=== PATIENT | male | born 1980 | race American Indian/Alaskan Native ===

== ENCOUNTER 2018-01-14 10:56 | Emergency (ER) | payer MEDICAID ==
[2018-01-14] MEDS ORDERED: KEPPRA 1,000 MG/NS 0.75% 100ML 1,000 MG/100 ML BAG IV ONE (11:26)
[2018-01-14 11:30] VITALS: BP 135/75
[2018-01-14 11:59] LABS: Basophils % (Auto) 0.3 % (0.0-1.8); Eosinophils % (Auto) 0.2 % (0.0-4.3); Hematocrit 41.9 % (35.5-45.6); Hemoglobin 14.3 gm/dl (11.8-15.2); Lymphocytes # (Auto) 1.3 K/mm3 (1.2-5.4); Lymphocytes % (Auto) 17.7 % (13.4-35.0); Mean Corpuscular HGB Conc 34 % (32-34); Mean Corpuscular Hemoglobin 31 pg (28-32); Mean Corpuscular Volume 91 fl (84-94); Monocytes # (Auto) 0.5 K/mm3 (0.0-0.8); Monocytes % (Auto) 6.1 % (0.0-7.3); Platelet Count 261 K/mm3 (140-440); Red Cell Distribution Width 12.9 % (13.2-15.2)
--- NOTE | 2018-01-14 12:15 | Cat Scan Report ---
CT HEAD WITHOUT CONTRAST: HISTORY: Trauma after a seizure. TECHNIQUE: Sequential 2.5mm CT images. COMPARISON: none. FINDINGS: Cerebral Parenchyma: Within normal limits. Cerebellum: Within normal limits. Brainstem: Within normal limits. Ventricles: Normal. Sella: Normal. Extra-axial spaces: Normal. Basal Cisterns: Normal. Intracranial Hemorrhage: None. Midline Shift: None. Calvarium: Normal. Mild right frontal soft tissue swelling is noted. Sinuses: Normal. Mastoid Air Cells: Normal. Visualized Orbits: Normal. IMPRESSION: Cranial CT scan within normal limits.
--- NOTE | 2018-01-14 12:17 | Cat Scan Report ---
CT SCAN OF THE CERVICAL SPINE: HISTORY: Neck pain after seizure. TECHNIQUE: Contiguous 1.25 mm axial images of the cervical spine were obtained. Sagittal and coronal reformatted images. FINDINGS: There is normal alignment of the cervical spine. The body, pedicles and posterior ligaments are intact. No evidence of fracture or subluxation is seen. Mild degenerative disc disease is noted at C3-4. The spinal canal appears normal. The prevertebral soft tissues appear normal. IMPRESSION: Mild cervical spondylosis. No acute process is noted.
[2018-01-14 12:39] LABS: BUN/Creatinine Ratio 12; Blood Urea Nitrogen 14 mg/dL (9-20); Calcium 9.4 mg/dL (8.4-10.2); Hemolysis Index 5
--- NOTE | 2018-01-14 14:07 | Emergency Department Report ---
ED Seizure HPI - General Chief Complaint: Seizure Stated Complaint: SEIZURE Time Seen by Provider: 01/14/18 11:17 Source: patient, EMS Mode of arrival: Stretcher Limitations: No Limitations - History of Present Illness Initial Comments: Patient had a generalized seizure at home. He is transported to this facility for further evaluation. He hit his head. He does not complain of a headache at this point but states that his neck is somewhat stiff. He has been off his Keppra for at least 2 weeks. He has no specific complaint otherwise. MD Complaint: seizure Description of Episode: tonic-clonic movement -: minutes(s) Witnessed:: Yes Seizure History: known seizure disorder Place: home Associated Symptoms: denies other symptoms - Related Data Previous Rx's Medication Instructions Recorded Last Taken Type levETIRAcetam [Keppra] 500 mg PO BID #60 tablet 01/14/18 Unknown Rx Allergies Allergy/AdvReac Type Severity Reaction Status Date / Time No Known Allergies Allergy Verified 01/14/18 11:17 ED Review of Systems ROS: Stated complaint: SEIZURE Other details as noted in HPI Constitutional: denies: chills, fever Eyes: denies: eye pain, eye discharge, vision change ENT: denies: ear pain, throat pain Respiratory: denies: cough, shortness of breath, wheezing Cardiovascular: denies: chest pain, palpitations Endocrine: no symptoms reported Gastrointestinal: denies: abdominal pain, nausea, diarrhea Genitourinary: denies: urgency, dysuria Musculoskeletal: other (some neck stiffness). denies: back pain, joint swelling , arthralgia Skin: denies: rash, lesions Neurological: denies: headache, weakness, paresthesias Psychiatric: denies: anxiety, depression Hematological/Lymphatic: denies: easy bleeding, easy bruising ED Past Medical Hx - Past Medical History Hx Seizures: Yes - Surgical History Past Surgical History?: No - Social History Smoking Status: Never Smoker Substance Use Type: None - Medications Home Medications: Home Medications Medication Instructions Recorded Confirmed Last Taken Type levETIRAcetam [Keppra] 500 mg PO BID #60 tablet 01/14/18 Unknown Rx ED Physical Exam - General Limitations: No Limitations General appearance: alert, in no apparent distress - Head Head exam: Present: normocephalic, other (abrasion forehead no cephalohematoma) - Eye Eye exam: Present: normal appearance, PERRL, EOMI. Absent: scleral icterus - ENT ENT exam: Present: mucous membranes moist - Neck Neck exam: Present: normal inspection. Absent: tenderness, meningismus - Respiratory Respiratory exam: Present: normal lung sounds bilaterally. Absent: respiratory distress - Cardiovascular Cardiovascular Exam: Present: regular rate, normal rhythm. Absent: systolic murmur, diastolic murmur, rubs, gallop - GI/Abdominal GI/Abdominal exam: Present: soft, normal bowel sounds. Absent: distended, tenderness, guarding, rebound, rigid - Rectal Rectal exam: Present: deferred - Extremities Exam Extremities exam: Present: normal inspection - Back Exam Back exam: Present: normal inspection - Neurological Exam Neurological exam: Present: alert, oriented X3, CN II-XII intact. Absent: motor sensory deficit - Psychiatric Psychiatric exam: Present: normal affect, normal mood - Skin Skin exam: Present: warm, dry, intact, normal color. Absent: rash ED Course Vital Signs 01/14/18 01/14/18 11:19 11:30 Temperature 98.6 F Pulse Rate 60 Respiratory 18 18 Rate Blood Pressure 135/75 O2 Sat by Pulse 99 99 Oximetry - Reevaluation(s) Reevaluation #1: Patient awake and alert. Talking on his cell phone. No distress. Appropriate for outpatient management. He has been informed not to drive or utilize motorized equipment until cleared by a neurologist preferably or primary care physician. 01/14/18 14:11 ED Medical Decision Making - Lab Data Result diagrams: 01/14/18 11:38 01/14/18 11:38 Laboratory Results - last 24 hr 01/14/18 01/14/18 11:38 11:38 WBC 7.5 RBC 4.60 Hgb 14.3 Hct 41.9 MCV 91 MCH 31 MCHC 34 RDW 12.9 L Plt Count 261 Lymph % (Auto) 17.7 [place] % (Auto) 6.1 Eos % (Auto) 0.2 Baso % (Auto) 0.3 Lymph # 1.3 [place] # 0.5 Eos # 0.0 Baso # 0.0 Seg Neutrophils % 75.7 H Seg Neutrophils # 5.7 Sodium 138 Potassium 4.7 Chloride 99.0 Carbon Dioxide 26 Anion Gap 18 BUN 14 Creatinine 1.2 Estimated GFR > 60 BUN/Creatinine Ratio 12 Glucose 88 Calcium 9.4 Magnesium 2.30 - Radiology Data Radiology results: report reviewed (CT of the head and cervical spine no acute process) Critical care attestation.: If time is entered above; I have spent that time in minutes in the direct care of this critically ill patient, excluding procedure time. ED Disposition Clinical Impression: Seizure, History of seizure disorder Disposition: TO HOME OR SELFCARE Is pt being admited?: No Does the pt Need Aspirin: No Condition: Stable Instructions: Recurrent Seizures Adult (ED) Additional Instructions: Drive or operate machinery until you have been cleared by her neurologist or primary care physician. Prescriptions: levETIRAcetam [Keppra] 500 mg PO BID #60 tablet Referrals: [facility] [Provider Group] - 3-5 Days MYRON CHEN MD [Staff Physician] - 3-5 Days Time of Disposition: 14:19
== END 2018-01-14 15:01 | disposition home or self-care (01) ==
LOC: ED 10:56
DX: G40.909 Epilepsy, unspecified, not intractable, without status epilepticus (principal)
CPT/HCPCS: 36415; 70450; 72125; 80048; 83735; 85025; 93005; 93010; 96365; 99284; J1953

== ENCOUNTER 2018-02-03 14:46 | Observation (INO) | payer MEDICAID ==
[2018-02-03 15:46] LABS: Hematocrit 42.2 % (35.5-45.6); Hemoglobin 13.6 gm/dl (11.8-15.2); Mean Corpuscular HGB Conc 32 % (32-34); Mean Corpuscular Hemoglobin 31 pg (28-32); Mean Corpuscular Volume 95 fl (84-94); Platelet Count 304 K/mm3 (140-440); Red Blood Count 4.45 M/mm3 (3.65-5.03); Red Cell Distribution Width 13.4 % (13.2-15.2)
[2018-02-03 15:49] LABS: BUN/Creatinine Ratio 8; Blood Urea Nitrogen 11 mg/dL (9-20); Calcium 8.9 mg/dL (8.4-10.2); Hemolysis Index 3
[2018-02-03 17:00] LABS: Bilirubin,Urine NEG (Negative); Blood,Urine MOD (Negative); Color,Urine Yellow (Yellow); Mucus,Urine FEW /HPF; Protein,Urine <15 mg/dL mg/dL (Negative); Urobilinogen,Urine < 2.0 mg/dL (<2.0); WBC,Urine < 1.0 /HPF (0.0-6.0)
[2018-02-03 17:04] LABS: Amphetamine Screen,Urine PRESUMPTIVE NEGATIVE; Benzodiazepines Screen,Urine PRESUMPTIVE NEGATIVE; Cocaine Screen,Urine PRESUMPTIVE NEGATIVE; Methadone Screen,Urine PRESUMPTIVE NEGATIVE; Opiate Screen,Urine PRESUMPTIVE NEGATIVE
[2018-02-03] MEDS ORDERED: ATIVAN ONE (17:15)
[2018-02-03] MEDS ORDERED: NACL 0.9% 1000 ML 1,000 ML ONE (17:20)
[2018-02-03] MEDS ORDERED: KEPPRA 1,000 MG/NS 0.75% 100ML 1,000 MG/100 ML BAG IV ONE ×2 (17:20→17:27)
[2018-02-03 17:21] LABS: Cannabinoid Screen,Urine PRESUMPTIVE POSITIVE
[2018-02-03] MEDS ORDERED: ATIVAN IV ONE (17:27)
[2018-02-03] MEDS ORDERED: NACL 0.9% 1000 ML 1,000 ML IV ONE (17:27)
--- NOTE | 2018-02-03 17:41 | Emergency Department Report ---
ED Seizure HPI - General Chief Complaint: Seizure Stated Complaint: SEIZURES Time Seen by Provider: 02/03/18 17:24 Source: patient Mode of arrival: Ambulatory Limitations: No Limitations - History of Present Illness Initial Comments: Patient had seizure twice today at home according to his who is present at his bedside. While he is in the ED he had an active seizure which was witnessed by the ED staff including me. Patient became postictal after the seizure. He was given 2 mg of Ativan IV which aborted the seizure in the ED. Complaint: seizure -: Sudden, This morning, This afternoon Description of Episode: loss of consciousness, tonic-clonic movement -: minutes(s) (3) Witnessed:: Yes Trauma: No Seizure History: known seizure disorder Place: home, other (ED) Possible Precipitating Event: medication (Patient is not taking his Keppra yesterday and today.) Associated Symptoms: other (unable to obtain patient is postictal.) Treatments Prior to Arrival: none - Related Data Home Medications Medication Instructions Recorded Confirmed Last Taken levETIRAcetam [Keppra] 1,500 mg PO DAILY 02/03/18 02/03/18 2 Days Ago ~02/01/18 1500mg Allergies Allergy/AdvReac Type Severity Reaction Status Date / Time No Known Allergies Allergy Verified 01/14/18 11:17 ED Review of Systems ROS: Stated complaint: SEIZURES Other details as noted in HPI Comment: Unobtainable due to pts medical conditions (Patient is post ictal.) ED Past Medical Hx - Past Medical History Previous Medical History?: Yes Hx Seizures: Yes - Surgical History Past Surgical History?: No - Social History Smoking Status: Never Smoker Substance Use Type: Alcohol, Marijuana, Prescribed - Medications Home Medications: Home Medications Medication Instructions Recorded Confirmed Last Taken Type levETIRAcetam [Keppra] 1,500 mg PO DAILY 02/03/18 02/03/18 2 Days Ago History ~02/01/18 1500mg ED Physical Exam - General Limitations: Altered Mental Status (Patient is post ictal.) General appearance: postictal - Head Head exam: Present: atraumatic, normal inspection - Eye Eye exam: Present: PERRL - ENT ENT exam: Present: mucous membranes moist, other (patient foaming from the mouth after seizure.) - Neck Neck exam: Present: normal inspection - Respiratory Respiratory exam: Present: normal lung sounds bilaterally - Cardiovascular Cardiovascular Exam: Present: tachycardia, normal heart sounds - GI/Abdominal GI/Abdominal exam: Present: soft, normal bowel sounds. Absent: distended, tenderness, guarding, rebound - Extremities Exam Extremities exam: Present: normal inspection, normal capillary refill - Neurological Exam Neurological exam: Present: other (Unable to evaluate because patient is postictal.) - Skin Skin exam: Present: warm, dry, intact, normal color ED Course Vital Signs 02/03/18 02/03/18 02/03/18 15:07 16:42 16:45 Temperature 98.4 F Pulse Rate 102 H Respiratory 18 Rate Blood Pressure 136/79 144/63 O2 Sat by Pulse 93 97 99 Oximetry 02/03/18 02/03/18 02/03/18 17:00 17:15 17:31 Temperature Pulse Rate 79 119 H 122 H Respiratory 17 24 29 H Rate Blood Pressure 126/66 152/59 132/31 O2 Sat by Pulse 98 100 Oximetry 02/03/18 02/03/18 02/03/18 17:39 17:40 18:00 Temperature 99.8 F H Pulse Rate 113 H 95 H Respiratory 24 26 H Rate Blood Pressure 132/31 116/54 O2 Sat by Pulse 100 100 Oximetry 02/03/18 18:21 Temperature Pulse Rate 89 Respiratory 26 H Rate Blood Pressure 128/56 O2 Sat by Pulse 100 Oximetry - Reevaluation(s) Reevaluation #1: 02/03/18 19:34 I discussed the case with Dr. Fuentes the hospitalist on-call. He will admit patient to the hospital for further management. ED Medical Decision Making - Lab Data Result diagrams: 02/03/18 18:30 02/03/18 18:22 - Medical Decision Making Seizure disorder. Noncompliant with seizure medication. Hypocalcemia. Critical care attestation.: If time is entered above; I have spent that time in minutes in the direct care of this critically ill patient, excluding procedure time. ED Disposition Clinical Impression: Seizure disorder, Hypocalcemia Disposition: OP ADMIT IP TO THIS HOSP Is pt being admited?: Yes Does the pt Need Aspirin: No Condition: Stable Referrals: PRIMARY CARE, [Primary Care Provider] - 3-5 Days
[2018-02-03 18:00] LABS: INR 0.98 (0.87-1.13); Partial Thromboplastin Time 23.7 Sec. (24.2-36.6)
--- NOTE | 2018-02-03 18:16 | Cat Scan Report ---
FINAL REPORT EXAM: CT HEAD/BRAIN WO CON HISTORY: seizure TECHNIQUE: CT of the head was performed. No intravenous contrast was administered. PRIORS: 01/14/2018 FINDINGS: There is no evidence of intracranial hemorrhage. There is no edema, mass effect or midline shift. There are no abnormal extra-axial fluid collections. The ventricles are appropriate for brain volume. There is no skull fracture seen. The visualized aspects of the sinuses are clear. IMPRESSION: There is no acute intracranial abnormality identified.
--- NOTE | 2018-02-03 18:40 | XRay Report ---
FINAL REPORT PROCEDURE: XR CHEST 1V AP TECHNIQUE: Chest radiograph anteroposterior view. CPT 00692 HISTORY: seizure COMPARISON: No prior studies are available for comparison. FINDINGS: Heart: Normal. Mediastinum/Vessels: Normal. Lungs/Pleural space: A triangular density is noted in the right upper lung consistent with collapse of right upper lobe. There is moderate elevation of right hemidiaphragm. Left lung and bilateral pleural spaces are clear. Bony thorax: No acute osseous abnormality. Life support devices: None. IMPRESSION: Collapse right upper lobe. If there is any history of prior right lung surgery this may represent a right upper lobe resection. Clinical correlation is recommended. Comparison with any prior studies would be of help..
[2018-02-03 18:43] LABS: Basophils % (Auto) 0.2 % (0.0-1.8); Eosinophils % (Auto) 0.1 % (0.0-4.3); Hematocrit 38.5 % (35.5-45.6); Hemoglobin 12.5 gm/dl (11.8-15.2); Lymphocytes # (Auto) 0.5 K/mm3 (1.2-5.4); Mean Corpuscular HGB Conc 33 % (32-34); Mean Corpuscular Hemoglobin 31 pg (28-32); Mean Corpuscular Volume 94 fl (84-94); Monocytes # (Auto) 0.4 K/mm3 (0.0-0.8); Monocytes % (Auto) 5.1 % (0.0-7.3); Platelet Count 252 K/mm3 (140-440); Red Cell Distribution Width 13.3 % (13.2-15.2)
[2018-02-03 18:57] LABS: Alanine Aminotransferase 14 units/L (7-56); Albumin 3.7 g/dL (3.9-5); BUN/Creatinine Ratio 8; Blood Urea Nitrogen 10 mg/dL (9-20); Calcium 7.9 mg/dL (8.4-10.2); Hemolysis Index 8
[2018-02-03 19:02] LABS: Alanine Aminotransferase 15 units/L (7-56); Albumin 3.8 g/dL (3.9-5)
[2018-02-03 19:06] LABS: Bilirubin,Direct < 0.2 mg/dL (0-0.2)
[2018-02-03] MEDS ORDERED: CALCIUM GLUCONATE 1,000 MG in NACL 0.9% 100 ML IV ONE (19:22)
[2018-02-03] MEDS ORDERED: D50W (25GM) Syringe IV ONE (19:23)
--- NOTE | 2018-02-03 21:17 | History and Physical Report ---
History of Present Illness Date of examination: 02/03/18 Date of admission: 02/03/18 19:37 Chief complaint: Seizures x 3 times today including one in ER History of present illness: History of Present Illness: Patient had seizures twice today at home according to his who is present at his bedside. While he is in the ED he had an active seizure which was witnessed by the ED staff including me. Patient became postictal after the seizure. He was given 2 mg of Ativan IV which aborted the seizure in the ED. Complaint: seizure -: Sudden, This morning, This afternoon Description of Episode: loss of consciousness, tonic-clonic movement -: minutes(s) (3) Witnessed:: Yes Trauma: No Seizure History: known seizure disorder Place: home, other (ED) Possible Precipitating Event: medication (Patient is not taking his Keppra yesterday and today.) Associated Symptoms: other (unable to obtain patient is postictal.) Treatments Prior to Arrival: none Past Medical History Previous Medical History?: Yes Hx Seizures: Yes - Surgical History Past Surgical History?: No - Social History Smoking Status: Never Smoker Substance Use Type: Alcohol, Marijuana, Prescribed Family History Htn - Medications Home Medications: Home Medications Medication Instructions Recorded Confirmed Last Taken Type levETIRAcetam [Keppra] 1,500 mg PO DAILY 02/03/18 02/03/18 2 Days Ago History ~02/01/18 1500mg Medications and Allergies Allergies Allergy/AdvReac Type Severity Reaction Status Date / Time No Known Allergies Allergy Verified 01/14/18 11:17 Home Medications Medication Instructions Recorded Confirmed Last Taken Type levETIRAcetam [Keppra] 1,500 mg PO DAILY 02/03/18 02/03/18 2 Days Ago History ~02/01/18 1500mg Review of Systems All systems: negative Exam - Constitutional Vitals: Temp Pulse Resp BP Pulse Ox 99.8 F H 89 26 H 128/56 100 02/03/18 17:39 02/03/18 18:21 02/03/18 18:21 02/03/18 18:21 02/03/18 18:21 General appearance: Present: no acute distress, well-nourished - EENT Eyes: Present: PERRL ENT: hearing intact, clear oral mucosa - Neck Neck: Present: supple, normal ROM - Respiratory Respiratory effort: normal Respiratory: bilateral: CTA - Cardiovascular Heart Sounds: Present: S1 & S2. Absent: rub, click - Extremities Extremities: pulses symmetrical, No edema Peripheral Pulses: within normal limits - Abdominal General gastrointestinal: Present: soft, non-tender, non-distended, normal bowel sounds Male genitourinary: Present: normal - Integumentary Integumentary: Present: clear, warm, dry - Musculoskeletal Musculoskeletal: gait normal, strength equal bilaterally - Psychiatric Psychiatric: appropriate mood/affect, intact judgment & insight - Neurologic Neurologic: CNII-XII intact, moves all extremities Results - Labs CBC & Chem 7: 02/04/18 04:50 02/04/18 04:50 Labs: Laboratory Last Values WBC 8.2 K/mm3 (4.5-11.0) 02/03/18 18:30 RBC 4.10 M/mm3 (3.65-5.03) 02/03/18 18:30 Hgb 12.5 gm/dl (11.8-15.2) 02/03/18 18:30 Hct 38.5 % (35.5-45.6) 02/03/18 18:30 MCV 94 fl (84-94) 02/03/18 18:30 MCH 31 pg (28-32) 02/03/18 18:30 MCHC 33 % (32-34) 02/03/18 18:30 RDW 13.3 % (13.2-15.2) 02/03/18 18:30 Plt Count 252 K/mm3 (140-440) 02/03/18 18:30 Lymph % (Auto) 6.0 % (13.4-35.0) L 02/03/18 18:30 [place] % (Auto) 5.1 % (0.0-7.3) 02/03/18 18:30 Eos % (Auto) 0.1 % (0.0-4.3) 02/03/18 18:30 Baso % (Auto) 0.2 % (0.0-1.8) 02/03/18 18:30 Lymph # 0.5 K/mm3 (1.2-5.4) L 02/03/18 18:30 [place] # 0.4 K/mm3 (0.0-0.8) 02/03/18 18:30 Eos # 0.0 K/mm3 (0.0-0.4) 02/03/18 18:30 Baso # 0.0 K/mm3 (0.0-0.1) 02/03/18 18:30 Seg Neutrophils % 88.6 % (40.0-70.0) H 02/03/18 18:30 Seg Neutrophils # 7.3 K/mm3 (1.8-7.7) 02/03/18 18:30 PT 13.5 Sec. (12.2-14.9) 02/03/18 17:39 INR 0.98 (0.87-1.13) 02/03/18 17:39 APTT 23.7 Sec. (24.2-36.6) L 02/03/18 17:39 Sodium 137 mmol/L (137-145) 02/03/18 18:22 Potassium 4.7 mmol/L (3.6-5.0) D 02/03/18 18:22 Chloride 102.4 mmol/L (98-107) 02/03/18 18:22 Carbon Dioxide 18 mmol/L (22-30) L 02/03/18 18:22 Anion Gap 21 mmol/L 02/03/18 18:22 BUN 10 mg/dL (9-20) 02/03/18 18:22 Creatinine 1.2 mg/dL (0.8-1.5) 02/03/18 18:22 Estimated GFR > 60 ml/min 02/03/18 18:22 BUN/Creatinine Ratio 8 % 02/03/18 18:22 Glucose 71 mg/dL (75-100) L 02/03/18 18:22 Calcium 7.9 mg/dL (8.4-10.2) L 02/03/18 18:22 Total Bilirubin 0.30 mg/dL (0.1-1.2) 02/03/18 18:22 Direct Bilirubin < 0.2 mg/dL (0-0.2) 02/03/18 18:22 Indirect Bilirubin 0.1 mg/dL 02/03/18 18:22 AST 35 units/L (5-40) 02/03/18 18:22 ALT 15 units/L (7-56) 02/03/18 18:22 Alkaline Phosphatase 40 units/L (35-129) 02/03/18 18:22 Total Protein 6.3 g/dL (6.3-8.2) 02/03/18 18:22 Albumin 3.8 g/dL (3.9-5) L 02/03/18 18:22 Albumin/Globulin Ratio 1.5 % 02/03/18 18:22 Urine Color Yellow (Yellow) 02/03/18 16:44 Urine Turbidity Clear (Clear) 02/03/18 16:44 Urine pH 5.0 (5.0-7.0) 02/03/18 16:44 Ur Specific [place] 1.016 (1.003-1.030) 02/03/18 16:44 Urine Protein <15 mg/dl mg/dL (Negative) 02/03/18 16:44 Urine Glucose (UA) Neg mg/dL (Negative) 02/03/18 16:44 Urine Ketones Tr mg/dL (Negative) 02/03/18 16:44 Urine Blood Mod (Negative) 02/03/18 16:44 Urine Nitrite Neg (Negative) 02/03/18 16:44 Urine Bilirubin Neg (Negative) 02/03/18 16:44 Urine Urobilinogen < 2.0 mg/dL (<2.0) 02/03/18 16:44 Ur Leukocyte Esterase Neg (Negative) 02/03/18 16:44 Urine WBC (Auto) < 1.0 /HPF (0.0-6.0) 02/03/18 16:44 Urine RBC (Auto) 3.0 /HPF (0.0-6.0) 02/03/18 16:44 Urine Mucus Few /HPF 02/03/18 16:44 Urine Opiates Screen Presumptive negative 02/03/18 16:44 Urine Methadone Screen Presumptive negative 02/03/18 16:44 Ur Barbiturates Screen Presumptive negative 02/03/18 16:44 Valproic Acid < 2.8 ug/mL (50-100) L 02/03/18 15:17 Ur Phencyclidine Scrn Presumptive negative 02/03/18 16:44 Ur Amphetamines Screen Presumptive negative 02/03/18 16:44 U Benzodiazepines Scrn Presumptive negative 02/03/18 16:44 Urine Cocaine Screen Presumptive negative 02/03/18 16:44 U Marijuana (THC) Screen Presumptive positive 02/03/18 16:44 Drugs of Abuse Note Disclamer 02/03/18 16:44 Short CBC 02/03/18 02/03/18 02/04/18 Range/Units 15:17 18:30 04:50 WBC 8.9 8.2 9.7 (4.5-11.0) K/mm3 Hgb 13.6 12.5 12.9 (11.8-15.2) gm/dl Hct 42.2 38.5 39.2 (35.5-45.6) % Plt Count 304 252 230 (140-440) K/mm3 BMP 02/03/18 02/03/18 02/04/18 15:17 18:22 04:50 Sodium 140 137 139 Potassium 3.8 4.7 D 4.1 Chloride 98.5 102.4 104.0 Carbon Dioxide 13 L 18 L 24 BUN 11 10 8 L Creatinine 1.3 1.2 1.2 Glucose 131 H 71 L 100 Calcium 8.9 7.9 L 8.5 Liver Function 02/03/18 02/03/18 02/04/18 Range/Units 18:22 18:22 04:50 Total Bilirubin 0.30 0.30 0.90 (0.1-1.2) mg/dL Direct Bilirubin < 0.2 (0-0.2) mg/dL AST 33 35 48 H (5-40) units/L ALT 14 15 15 (7-56) units/L Alkaline Phosphatase 40 40 41 (35-129) units/L Albumin 3.7 L 3.8 L 3.7 L (3.9-5) g/dL Urine 02/03/18 Range/Units 16:44 Urine Color Yellow (Yellow) Urine pH 5.0 (5.0-7.0) Ur Specific [place] 1.016 (1.003-1.030) Urine Protein <15 mg/dl (Negative) mg/dL Urine Glucose (UA) Neg (Negative) mg/dL - Imaging and Cardiology EKG: report reviewed Chest x-ray: report reviewed (Collapse RUL) CT Scan - head: report reviewed Assessment and Plan Advance Directives: Yes (Full code) VTE prophylaxis?: Chemical Plan of care discussed with patient/family: Yes - Patient Problems (1) Seizure disorder Current Visit: Yes Status: Acute Plan to address problem: IV Keppra for now Transition to PO keppra by Hospitalist team (2) Collapsed lung Current Visit: Yes Status: Acute Plan to address problem: Acute or Chronic not known Patient Postictal could not be reached (3) Hypocalcemia Current Visit: Yes Status: Acute Plan to address problem: Mild -resolved (4) DVT prophylaxis Current Visit: Yes Status: Acute Plan to address problem: On Heparin
[2018-02-03] MEDS ORDERED: ZOFRAN IV PRN (21:23)
[2018-02-03] MEDS ORDERED: PERCOCET 5/325 PO PRN (21:23)
[2018-02-03] MEDS ORDERED: DILAUDID IV PRN (21:23)
[2018-02-03] MEDS ORDERED: TYLENOL PO PRN (21:23)
[2018-02-03] MEDS ORDERED: SODIUM CHLORIDE FLUSH SYRINGE 10 ML IV PRN (21:23)
[2018-02-03] MEDS ORDERED: MORPHINE IV PRN (21:43)
[2018-02-03] MEDS ORDERED: TYLENOL ONE (22:04)
[2018-02-03] MEDS: PEPCID PO SCH (22:22)
[2018-02-03] MEDS: D5NS 1,000 ML IV SCH (22:22)
[2018-02-03] MEDS: SODIUM CHLORIDE FLUSH SYRINGE 10 ML IV SCH (22:23)
[2018-02-04 05:07] LABS: Basophils % (Auto) 0.1 % (0.0-1.8); Eosinophils % (Auto) 0.1 % (0.0-4.3); Hematocrit 39.2 % (35.5-45.6); Hemoglobin 12.9 gm/dl (11.8-15.2); Lymphocytes # (Auto) 1.6 K/mm3 (1.2-5.4); Lymphocytes % (Auto) 16.9 % (13.4-35.0); Mean Corpuscular HGB Conc 33 % (32-34); Mean Corpuscular Hemoglobin 30 pg (28-32); Mean Corpuscular Volume 92 fl (84-94); Monocytes # (Auto) 0.7 K/mm3 (0.0-0.8); Monocytes % (Auto) 7.2 % (0.0-7.3); Platelet Count 230 K/mm3 (140-440); Red Blood Count 4.24 M/mm3 (3.65-5.03); Red Cell Distribution Width 13.4 % (13.2-15.2)
[2018-02-04 05:31] LABS: Alanine Aminotransferase 15 units/L (7-56); Albumin 3.7 g/dL (3.9-5); BUN/Creatinine Ratio 7; Blood Urea Nitrogen 8 mg/dL (9-20); Calcium 8.5 mg/dL (8.4-10.2); Hemolysis Index 2
[2018-02-04] MEDS: D5NS 1,000 ML IV SCH ×2 (09:37→22:41)
[2018-02-04] MEDS: PEPCID PO SCH ×2 (09:39→22:33)
[2018-02-04] MEDS: SODIUM CHLORIDE FLUSH SYRINGE 10 ML IV SCH ×2 (09:41→22:35)
--- NOTE | 2018-02-04 10:18 | Consultation ---
History of Present Illness Consult date: 02/04/18 Requesting physician: VERONICA ACHARYA Reason for consult: other (Right upper lobe collapse) Medications and Allergies Allergies Allergy/AdvReac Type Severity Reaction Status Date / Time No Known Allergies Allergy Verified 01/14/18 11:17 Home Medications Medication Instructions Recorded Confirmed Last Taken Type levETIRAcetam [Keppra] 1,500 mg PO DAILY 02/03/18 02/03/18 2 Days Ago History ~02/01/18 1500mg Active Meds: Active Medications Acetaminophen (Tylenol) 650 mg PO Q4H PRN PRN Reason: Pain MILD(1-3)/Fever >100.5/HERNANDEZ Last Admin: 02/03/18 22:19 Dose: 650 mg Famotidine (Pepcid) 20 mg PO BID [facility] Last Admin: 02/04/18 09:39 Dose: 20 mg Hydromorphone HCl (Dilaudid) 0.5 mg IV Q3H PRN PRN Reason: Pain , Severe (7-10) Dextrose/Sodium Chloride (D5ns) 1,000 mls @ 100 mls/hr IV DIRECT [facility] Last Admin: 02/04/18 09:37 Dose: 100 mls/hr Morphine Sulfate (Morphine) 2 mg IV Q4H PRN PRN Reason: Pain, Moderate (4-6) Ondansetron HCl (Zofran) 4 mg IV Q8H PRN PRN Reason: Nausea And Vomiting Oxycodone/Acetaminophen (Percocet 5/325) 1 tab PO Q6H PRN PRN Reason: Pain, Moderate (4-6) Sodium Chloride (Sodium Chloride Flush Syringe 10 Ml) 10 ml IV BID [facility] Last Admin: 02/04/18 09:41 Dose: Not Given Sodium Chloride (Sodium Chloride Flush Syringe 10 Ml) 10 ml IV PRN PRN PRN Reason: LINE FLUSH Review of Systems ROS unobtainable: due to mental status Physical Examination Vital signs: Vital Signs Temp Pulse Resp BP Pulse Ox 98.4 F 102 H 18 136/79 93 02/03/18 15:07 02/03/18 15:07 02/03/18 15:07 02/03/18 15:07 02/03/18 15:07 Results - Laboratory Findings CBC and BMP: 02/04/18 04:50 02/04/18 04:50 PT/INR, D-dimer PT 13.5 Sec. (12.2-14.9) 02/03/18 17:39 INR 0.98 (0.87-1.13) 02/03/18 17:39 Abnormal lab findings: Abnormal Labs 02/03/18 02/03/18 02/03/18 15:17 15:17 15:17 MCV 95 H Lymph % (Auto) Lymph # Seg Neutrophils % APTT Carbon Dioxide 13 L BUN Glucose 131 H Calcium AST Albumin Valproic Acid < 2.8 L 02/03/18 02/03/18 02/03/18 17:39 18:22 18:22 MCV Lymph % (Auto) Lymph # Seg Neutrophils % APTT 23.7 L Carbon Dioxide 18 L BUN Glucose 71 L Calcium 7.9 L AST Albumin 3.7 L 3.8 L Valproic Acid 02/03/18 02/04/18 02/04/18 18:30 04:50 04:50 MCV Lymph % (Auto) 6.0 L Lymph # 0.5 L Seg Neutrophils % 88.6 H 75.7 H APTT Carbon Dioxide BUN 8 L Glucose Calcium AST 48 H Albumin 3.7 L Valproic Acid - Diagnostic Findings Chest x-ray: image reviewed (Gaytan S-sign ) Assessment and Plan Right upper lobe collapse/atelectasis, probabbly secondary to mucus plug vs aspiration pneumonia Seizure disorder History of non compliance -Start bronchodilators, nurse with the right side dowm -Mucolytics -Get CT chest without contrast to evaluate for intrinsic/extrinsic compression of the right upper lobe bronchus -Based on patient's response to therapies and the findings on CT chest, may need therapeutic/diagnostic bronchoscopy
--- NOTE | 2018-02-04 10:36 | Progress Note ---
Assessment and Plan Assessment and plan: Seizure disorder IV Keppra for now ? Transition to PO keppra. Family reports that Keppra will not able to be obtained after February with current insurance. Therefore, patient is requesting to switch to Dilantin or other medication. Neurology consultation for further evaluation. Right upper lobe collapse/atelectasis Etiology probably secondary to mucus plug vs aspiration pneumonia Continue bronchodilators and mucolytics CT chest without contrast to evaluate for intrinsic/extrinsic compression of the right upper lobe bronchus Pulmonary to consider bronchoscopy. Hypocalcemia Mild -resolved DVT prophylaxis On Heparin History Interval history: No new issues overnight. Hospitalist Physical - Constitutional Vitals: Temp Pulse Resp BP Pulse Ox 98.7 F 66 16 127/62 97 02/04/18 07:18 02/04/18 07:18 02/04/18 07:18 02/04/18 07:18 02/04/18 10:15 General appearance: Present: no acute distress, well-nourished - EENT Eyes: Present: PERRL, EOM intact ENT: hearing intact, clear oral mucosa, dentition normal - Neck Neck: Present: supple, normal ROM - Respiratory Respiratory effort: normal Respiratory: bilateral: CTA - Cardiovascular Rhythm: regular Heart Sounds: Present: S1 & S2. Absent: gallop, rub - Extremities Extremities: no ischemia, No edema, Full ROM - Abdominal General gastrointestinal: soft, non-tender, non-distended, normal bowel sounds - Integumentary Integumentary: Present: clear, warm, dry - Neurologic Neurologic: CNII-XII intact, moves all extremities Results - Labs CBC & Chem 7: 02/04/18 04:50 02/04/18 04:50 Labs: Laboratory Last Values WBC 9.7 K/mm3 (4.5-11.0) 02/04/18 04:50 RBC 4.24 M/mm3 (3.65-5.03) 02/04/18 04:50 Hgb 12.9 gm/dl (11.8-15.2) 02/04/18 04:50 Hct 39.2 % (35.5-45.6) 02/04/18 04:50 MCV 92 fl (84-94) 02/04/18 04:50 MCH 30 pg (28-32) 02/04/18 04:50 MCHC 33 % (32-34) 02/04/18 04:50 RDW 13.4 % (13.2-15.2) 02/04/18 04:50 Plt Count 230 K/mm3 (140-440) 02/04/18 04:50 Lymph % (Auto) 16.9 % (13.4-35.0) 02/04/18 04:50 Crook % (Auto) 7.2 % (0.0-7.3) 02/04/18 04:50 Eos % (Auto) 0.1 % (0.0-4.3) 02/04/18 04:50 Baso % (Auto) 0.1 % (0.0-1.8) 02/04/18 04:50 Lymph # 1.6 K/mm3 (1.2-5.4) 02/04/18 04:50 Crook # 0.7 K/mm3 (0.0-0.8) 02/04/18 04:50 Eos # 0.0 K/mm3 (0.0-0.4) 02/04/18 04:50 Baso # 0.0 K/mm3 (0.0-0.1) 02/04/18 04:50 Seg Neutrophils % 75.7 % (40.0-70.0) H 02/04/18 04:50 Seg Neutrophils # 7.3 K/mm3 (1.8-7.7) 02/04/18 04:50 PT 13.5 Sec. (12.2-14.9) 02/03/18 17:39 INR 0.98 (0.87-1.13) 02/03/18 17:39 APTT 23.7 Sec. (24.2-36.6) L 02/03/18 17:39 Sodium 139 mmol/L (137-145) 02/04/18 04:50 Potassium 4.1 mmol/L (3.6-5.0) 02/04/18 04:50 Chloride 104.0 mmol/L (98-107) 02/04/18 04:50 Carbon Dioxide 24 mmol/L (22-30) 02/04/18 04:50 Anion Gap 15 mmol/L 02/04/18 04:50 BUN 8 mg/dL (9-20) L 02/04/18 04:50 Creatinine 1.2 mg/dL (0.8-1.5) 02/04/18 04:50 Estimated GFR > 60 ml/min 02/04/18 04:50 BUN/Creatinine Ratio 7 % 02/04/18 04:50 Glucose 100 mg/dL (75-100) 02/04/18 04:50 Hemoglobin A1c 5.0 % (4-6) 02/03/18 18:30 Calcium 8.5 mg/dL (8.4-10.2) 02/04/18 04:50 Total Bilirubin 0.90 mg/dL (0.1-1.2) 02/04/18 04:50 Direct Bilirubin < 0.2 mg/dL (0-0.2) 02/03/18 18:22 Indirect Bilirubin 0.1 mg/dL 02/03/18 18:22 AST 48 units/L (5-40) H 02/04/18 04:50 ALT 15 units/L (7-56) 02/04/18 04:50 Alkaline Phosphatase 41 units/L (35-129) 02/04/18 04:50 Total Protein 6.3 g/dL (6.3-8.2) 02/04/18 04:50 Albumin 3.7 g/dL (3.9-5) L 02/04/18 04:50 Albumin/Globulin Ratio 1.4 % 02/04/18 04:50 Urine Color Yellow (Yellow) 02/03/18 16:44 Urine Turbidity Clear (Clear) 02/03/18 16:44 Urine pH 5.0 (5.0-7.0) 02/03/18 16:44 Ur Specific Dameron 1.016 (1.003-1.030) 02/03/18 16:44 Urine Protein <15 mg/dl mg/dL (Negative) 02/03/18 16:44 Urine Glucose (UA) Neg mg/dL (Negative) 02/03/18 16:44 Urine Ketones Tr mg/dL (Negative) 02/03/18 16:44 Urine Blood Mod (Negative) 02/03/18 16:44 Urine Nitrite Neg (Negative) 02/03/18 16:44 Urine Bilirubin Neg (Negative) 02/03/18 16:44 Urine Urobilinogen < 2.0 mg/dL (<2.0) 02/03/18 16:44 Ur Leukocyte Esterase Neg (Negative) 02/03/18 16:44 Urine WBC (Auto) < 1.0 /HPF (0.0-6.0) 02/03/18 16:44 Urine RBC (Auto) 3.0 /HPF (0.0-6.0) 02/03/18 16:44 Urine Mucus Few /HPF 02/03/18 16:44 Urine Opiates Screen Presumptive negative 02/03/18 16:44 Urine Methadone Screen Presumptive negative 02/03/18 16:44 Ur Barbiturates Screen Presumptive negative 02/03/18 16:44 Valproic Acid < 2.8 ug/mL (50-100) L 02/03/18 15:17 Ur Phencyclidine Scrn Presumptive negative 02/03/18 16:44 Ur Amphetamines Screen Presumptive negative 02/03/18 16:44 U Benzodiazepines Scrn Presumptive negative 02/03/18 16:44 Urine Cocaine Screen Presumptive negative 02/03/18 16:44 U Marijuana (THC) Screen Presumptive positive 02/03/18 16:44 Drugs of Abuse Note Disclamer 02/03/18 16:44
[2018-02-04] MEDS ORDERED: CEREBYX IV ONE ×2 (13:02→14:30)
--- NOTE | 2018-02-04 14:26 | Cat Scan Report ---
FINAL REPORT EXAM: CT CHEST WO/W CON HISTORY: Right upper lobe collapse TECHNIQUE: A CT of the chest was performed from thoracic inlet to diaphragm. Images were obtained before and after intravenous contrast administration. PRIORS: Chest radiograph from 02/03/2018 FINDINGS: Previously seen right upper lobe collapse has resolved. The right upper lobe is now aerated. Lungs are clear. There is no pneumothorax seen. There is no pleural effusion seen. There is no significant mediastinal or hilar mass seen. IMPRESSION: Interval resolution of previously seen right upper lobe collapse. No significant abnormality identified.
[2018-02-04] MEDS ORDERED: [UNRECOGNIZED DRUG - OTHER] IV ONE (14:30)
[2018-02-04] MEDS ORDERED: NACL IV ONE (14:30)
[2018-02-04] MEDS: PROVENTIL IH SCH ×3 (15:01→21:14)
[2018-02-04] MEDS ORDERED: DILANTIN PO SCH (17:00)
--- NOTE | 2018-02-04 17:49 | Magnetic Resonance Report ---
FINAL REPORT PROCEDURE: MRI brain without contrast. TECHNIQUE: Magnetic resonance imaging of the brain was performed without contrast material. HISTORY: Epilepsy. COMPARISON: CT head 02/03/2018. FINDINGS: The ventricles are normal in size. There is normal signal intensity from the lawler matter and white matter. There are no mass lesions. There is no intracranial hemorrhage. There are no signs of restricted diffusion. The mastoid air cells and paranasal sinuses are clear. IMPRESSION: Normal study.
[2018-02-04] MEDS: KEPPRA 1,000 MG/NS 0.75% 100ML 1,000 MG/100 ML BAG IV SCH ×2 (18:07→22:39)
--- NOTE | 2018-02-04 19:41 | Consultation ---
History of Present Illness Consult date: 02/04/18 Requesting physician: SHANIQUE GARCIA Reason for Consult: seizures Chief complaint: seizures History of present illness: This 38-year-old left-handed -[place]ese male per ER MD: "Patient had seizure twice today at home according to his who is present at his bedside. While he is in the ED he had an active seizure which was witnessed by the ED staff including me. Patient became postictal after the seizure. He was given 2 mg of Ativan IV which aborted the seizure in the ED." He had been off his Keppra 500 mg twice a day or 2 at bedtime as he has been taking it, for only 1 day. He states he cannot afford to continue levetiracetam because his insurance runs out in February. He wants to go back on Dilantin even though he had somewhat more seizures on it than he has been having on Keppra. He has been having one or 2 seizures every 2 months on Keppra usually with an aura of dizziness, then is told he has a blank stare and goes into a generalized tonic- clonic seizure with tongue biting and loss of urine at times. He has had seizures since and was born 1 day late. He does not know what medications he was on back then but was then off medications for a number of years before seizures recurred in his teens at which time he was placed on Dilantin 3 capsules a day. He does not have any complex partial seizures. He recalls having an EEG in the past but not an MRI. Past History Past Medical History: seizures (some head injuries from his seizures. Never tuberculosis.) Past Surgical History: No surgical history (specifically no chest surgery when asked) Social history: , alcohol abuse (was drinking too much malt liquor ( hiding it from his ) 6 months ago but now apparently is not drinking alcohol.), other (went through 10th grade but never got a GED. 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 Was on social security disability prior to that apparently. No illicit drugs.). denies: smoking, prescription drug abuse, IV drug use Family history: other (no epilepsy). denies: hypertension, stroke Medications and Allergies Allergies Allergy/AdvReac Type Severity Reaction Status Date / Time No Known Allergies Allergy Verified 01/14/18 11:17 Home Medications Medication Instructions Recorded Confirmed Last Taken Type levETIRAcetam [Keppra] 1,500 mg PO DAILY 02/03/18 02/03/18 2 Days Ago History ~02/01/18 1500mg Active Meds: Active Medications Acetaminophen (Tylenol) 650 mg PO Q4H PRN PRN Reason: Pain MILD(1-3)/Fever >100.5/HERNANDEZ Last Admin: 02/03/18 22:19 Dose: 650 mg Albuterol (Proventil) 2.5 mg IH TIDRT [facility] Last Admin: 02/04/18 15:02 Dose: Not Given Famotidine (Pepcid) 20 mg PO BID [facility] Last Admin: 02/04/18 09:39 Dose: 20 mg Hydromorphone HCl (Dilaudid) 0.5 mg IV Q3H PRN PRN Reason: Pain , Severe (7-10) Dextrose/Sodium Chloride (D5ns) 1,000 mls @ 100 mls/hr IV DIRECT [facility] Last Admin: 02/04/18 09:37 Dose: 100 mls/hr Levetiracetam (Keppra 1,000 Mg/Ns 0.75% 100ml) 1,000 mg in 100 mls @ 400 mls/ hr IV Q12HR [facility] Last Admin: 02/04/18 18:07 Dose: 400 mls/hr Morphine Sulfate (Morphine) 2 mg IV Q4H PRN PRN Reason: Pain, Moderate (4-6) Ondansetron HCl (Zofran) 4 mg IV Q8H PRN PRN Reason: Nausea And Vomiting Oxycodone/Acetaminophen (Percocet 5/325) 1 tab PO Q6H PRN PRN Reason: Pain, Moderate (4-6) Phenytoin (Dilantin) 200 mg PO Q12HR [facility] Sodium Chloride (Sodium Chloride Flush Syringe 10 Ml) 10 ml IV BID [facility] Last Admin: 02/04/18 09:41 Dose: Not Given Sodium Chloride (Sodium Chloride Flush Syringe 10 Ml) 10 ml IV PRN PRN PRN Reason: LINE FLUSH Review of Systems All systems: negative (lost a little weight. Snoring and short pauses but not needing naps, not driving due to the seizure history.) Physical Examination - Vital Signs Vital Signs: Vital Signs Temp Pulse Resp BP Pulse Ox 98.4 F 102 H 18 136/79 93 02/03/18 15:07 02/03/18 15:07 02/03/18 15:07 02/03/18 15:07 02/03/18 15:07 - Physical Exam Narrative exam: General Appearance: well developed well nourished (per BMI) late 30s - [place]ese male in NAD, accompanied by his at the bedside. HEENT: atraumatic, normocephalic; no bruits, 2+ Lupe without soreness or induration or enlargement, sclerae nonicteric. Oropharynx pink and moist. Neck: supple, no bruits. Heart: no murmur or extra sounds. Extremities: no clubbing, cyanosis or edema. 2+ dorsalis pedis pulses bilaterally. Neurologic Exam: Mental Status: Awake, alert, oriented X 3, speech is clear, names pen not tip of pen and glasses but not the lenses, but abstracts well. Names President but not Bariatric Coordinator, serial 7's with several errors and gives 5+7 = 12, no right- left confusion, gets 1 of 3 objects at 3 minutes and a second item after first letter prompt, cannot spell WORLD forwards and cannot spell catch correctly so did not have him try to spell them backwards. Cranial Nerves: fuller full, no papilledema, SVPs present, PERRL but sluggish bilaterally to light though somewhat brisker to accommodation, EOMs full without nystagmus or diplopia, facial sensation intact to pinprick and light touch, no facial weakness, [place] is midline, palate rises symmetrically to phonation OR gags are positive, shoulder shrug is 5 X 2, tongue protrudes midline. Cerebellar: finger to nose and tandem are normal. Sensory: intact to light touch, pinprick, and vibrations. Double simultaneous stimulation is intact. Motor Exam Upper Extremities: no drift or pronation, Cortes intact. Cte Teacher are 5 X 2, tone is normal. No atrophy or fasciculations are noted visually. Motor Exam Lower Extremities: walks well on heels and toes but did not have him hop due to right upper lobe collapse noted on chest x-ray. Cortes intact. Tone is normal. No atrophy or fasciculations are noted visually. Reflexes: Palmomental, snout and jaw jerk are negative. Triceps are 1+, biceps and brachioradialis are 1 bilaterally. Javier's is negative bilaterally. Knee jerks are 1 and ankle jerks are 2 bilaterally without clonus. Toes are upgoing on the right and downgoing on the left to Babinski testing. Results - Laboratory Findings CBC and BMP: 02/04/18 04:50 02/04/18 04:50 Abnormal Lab Findings: Abnormal Labs 02/03/18 02/03/18 02/03/18 15:17 15:17 15:17 MCV 95 H Lymph % (Auto) Lymph # Seg Neutrophils % APTT Carbon Dioxide 13 L BUN Glucose 131 H Calcium AST Albumin Valproic Acid < 2.8 L 02/03/18 02/03/18 02/03/18 17:39 18:22 18:22 MCV Lymph % (Auto) Lymph # Seg Neutrophils % APTT 23.7 L Carbon Dioxide 18 L BUN Glucose 71 L Calcium 7.9 L AST Albumin 3.7 L 3.8 L Valproic Acid 02/03/18 02/04/18 02/04/18 18:30 04:50 04:50 MCV Lymph % (Auto) 6.0 L Lymph # 0.5 L Seg Neutrophils % 88.6 H 75.7 H APTT Carbon Dioxide BUN 8 L Glucose Calcium AST 48 H Albumin 3.7 L Valproic Acid Assessment and Plan Impression: 1. Complex partial seizures with secondary generalization, intractable Plan: 1. Will add a fosphenytoin loading dose and then 200 mg extended release phenytoin twice a day and check his phenytoin level in the morning around peak time. I explained that he may have needed a higher phenytoin level then 300 mg a day provided. I gave his the name of the [email or web address] website to help with medication costs. 2. Ordered brain MRI which on later review shows moderate to severe posterior cerebral atrophy and mild cerebellar atrophy but negative diffusion and GRE and negative FLAIR. 3. Will sign off. Does not need EEG at present. He can reduce levetiracetam to 500 mg twice a day for a week then 250 mg twice a day for a week then stop it while continuing on presumably 200 mg twice a day of extended release phenytoin. 4. Should arrange phenytoin level to be repeated again in one week along with follow-up with his primary care physician and later with a neurologist. 5. He is reminded not to drive till no seizures for 6 months based on [facility] law.
[2018-02-04] MEDS: DILANTIN PO SCH (22:32)
[2018-02-05] MEDS: PROVENTIL IH SCH ×2 (07:52→15:04)
[2018-02-05 08:32] VITALS: BP 122/63
[2018-02-05] MEDS: PEPCID PO SCH (09:35)
[2018-02-05] MEDS: DILANTIN PO SCH (09:35)
[2018-02-05] MEDS: D5NS 1,000 ML IV SCH (09:35)
[2018-02-05] MEDS: SODIUM CHLORIDE FLUSH SYRINGE 10 ML IV SCH (09:36)
[2018-02-05] MEDS: KEPPRA 1,000 MG/NS 0.75% 100ML 1,000 MG/100 ML BAG IV SCH (09:45)
--- NOTE | 2018-02-05 09:48 | Discharge Summary ---
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 Patient was postictal after the seizure but then stabilized. He had been off his Keppra 500 mg twice a day or 2 at bedtime as he has been taking it, for only 1 day. He states he cannot afford to continue levetiracetam because his insurance runs out in February. Patient reports that he wants to go back on Dilantin even though he had somewhat more seizures on it than he has been having on Keppra. The patient was evaluated by neurology and diagnosed with intractable complex partial seizures with secondary generalization. Patient was started on fosphenytoin IV and will be discharged on phenytoin daily. MRI was ordered which revealed moderate to severe posterior cerebral atrophy and mild cerebellar atrophy but negative diffusion and GRE and negative FLAIR. Neurology felt the patient did not need EEG at present. Other issues during hospital stay included on admission findings suggestive of right upper lobe atelectasis/collapse. Follow- up CT scan revealed resolution of previous atelectasis. With regards to the discharge plan concerning the seizure, Keppra will be reduced to 500 mg twice a day for a week then 250 mg twice a day for a week then stop it while continuing on presumably 200 mg twice a day of extended release phenytoin. Phenytoin level to be repeated again in one week along with follow-up with his primary care physician and later with a neurologist. Neurology instructed patient not to drive till no seizures for 6 months based on [facility] law. Dedicated discharge time 35 minutes. Disposition: TO HOME OR SELFCARE Time spent for discharge: 35 - Discharge Diagnoses (1) Collapsed lung Status: Acute (2) DVT prophylaxis Status: Acute (3) Seizure disorder Status: Acute Core Measure Documentation - Palliative Care Palliative Care/ Comfort Measures: Not Applicable - Core Measures Any of the following diagnoses?: none Exam - Constitutional Vitals: Temp Pulse Resp BP Pulse Ox 98.4 F 60 18 122/63 98 02/05/18 08:11 02/05/18 08:35 02/05/18 08:35 02/05/18 08:11 02/05/18 08:27 General appearance: Present: no acute distress, well-nourished - EENT Eyes: Present: PERRL ENT: hearing intact, clear oral mucosa - Neck Neck: Present: supple, normal ROM - Respiratory Respiratory effort: normal Respiratory: bilateral: CTA - Cardiovascular Heart Sounds: Present: S1 & S2. Absent: rub, click - Extremities Extremities: pulses symmetrical, No edema Peripheral Pulses: within normal limits - Abdominal General gastrointestinal: Present: soft, non-tender, non-distended, normal bowel sounds Male genitourinary: Present: normal - Integumentary Integumentary: Present: clear, warm, dry - Musculoskeletal Musculoskeletal: gait normal, strength equal bilaterally - Psychiatric Psychiatric: appropriate mood/affect, intact judgment & insight - Neurologic Neurologic: CNII-XII intact, moves all extremities Plan Activity: no restrictions, no driving until cleared by PCP Weight Bearing Status: Full Weight Bearing Diet: regular Additional Instructions: He can reduce levetiracetam to 500 mg twice a day for a week then 250 mg twice a day for a week then stop it while continuing on presumably 200 mg twice a day of extended release phenytoin. Also, he should arrange phenytoin level to be repeated again in one week along with follow-up with his primary care physician and later with a neurologist. He is not to drive till no seizures for 6 months based on [facility] law. Follow up with: PRIMARY MD ZULEMA [Primary Care Provider] - 3-5 Days CHEN MARKS MD [Staff Physician] - 7 Days Prescriptions: Phenytoin [Dilantin] 200 mg PO Q12HR #60 capsule.er
[2018-02-05] MEDS ORDERED: CEREBYX IV ONE ×2 (11:41→13:00)
[2018-02-05] MEDS ORDERED: NACL IV ONE (13:00)
[2018-02-05] MEDS ORDERED: [UNRECOGNIZED DRUG - OTHER] IV ONE (13:00)
[2018-02-05] MEDS ORDERED: KEPPRA PO SCH ×2 (22:00)
== END 2018-02-05 15:30 | disposition home or self-care (01) ==
LOC: ED 14:46 → 3A 19:37
PROVIDERS: ADMIT Internal Medicine; ATTEND Hospitalist
DX: G40.909 Epilepsy, unspecified, not intractable, without status epilepticus (principal); E83.51 Hypocalcemia; J98.19 Other pulmonary collapse
CPT/HCPCS: 36415; 70450; 70551; 71045; 71270; 80048; 80053; 80074; 80164; 80177; 80185; 80307; 81001; 82962; 83036; 85025; 85027; 85610; 85730; 94640; 96361; 96365; 96366; 96375; 96376; 99285; G0378; J0610; J1953; J2060; J7030; J7042; Q2009; Q9967

== ENCOUNTER 2018-02-13 03:05 | Emergency (ER) | payer MEDICAID ==
[2018-02-13 03:44] VITALS: BP 127/81
[2018-02-13 03:57] LABS: Basophils % (Auto) 0.5 % (0.0-1.8); Eosinophils % (Auto) 0.7 % (0.0-4.3); Hematocrit 37.7 % (35.5-45.6); Hemoglobin 12.7 gm/dl (11.8-15.2); Lymphocytes % (Auto) 18.2 % (13.4-35.0); Mean Corpuscular HGB Conc 34 % (32-34); Mean Corpuscular Hemoglobin 31 pg (28-32); Mean Corpuscular Volume 92 fl (84-94); Monocytes # (Auto) 0.3 K/mm3 (0.0-0.8); Monocytes % (Auto) 6.5 % (0.0-7.3); Platelet Count 257 K/mm3 (140-440); Red Cell Distribution Width 13.2 % (13.2-15.2)
[2018-02-13 04:13] LABS: Alanine Aminotransferase 15 units/L (7-56); Albumin 3.9 g/dL (3.9-5); BUN/Creatinine Ratio 11; Blood Urea Nitrogen 13 mg/dL (9-20); Calcium 8.6 mg/dL (8.4-10.2); Hemolysis Index 3
[2018-02-13 04:19] LABS: Bilirubin,Urine NEG (Negative); Blood,Urine MOD (Negative); Color,Urine Straw (Yellow); Mucus,Urine FEW /HPF; Protein,Urine <15 mg/dL mg/dL (Negative); Urobilinogen,Urine < 2.0 mg/dL (<2.0)
[2018-02-13 04:27] LABS: Amphetamine Screen,Urine PRESUMPTIVE NEGATIVE; Benzodiazepines Screen,Urine PRESUMPTIVE NEGATIVE; Cannabinoid Screen,Urine PRESUMPTIVE NEGATIVE; Cocaine Screen,Urine PRESUMPTIVE NEGATIVE; Methadone Screen,Urine PRESUMPTIVE NEGATIVE; Opiate Screen,Urine PRESUMPTIVE NEGATIVE
[2018-02-13] MEDS: DILANTIN 1,000 MG in NACL 0.9% 250ML 250 ML IV ONE (05:31)
--- NOTE | 2018-02-13 06:25 | Emergency Department Report ---
HPI - General Chief Complaint: Seizure Time Seen by Provider: 02/13/18 03:36 - HPI HPI: 38-year-old male presents to the emergency department via EMS from home after he had a witnessed seizure while sleeping. It was witnessed by his . The patient has a history of epilepsy from when he was a child. He takes Depakote for his seizures and says that he takes compliantly. He denies any recent alcohol use and denies any illicit drug use. Patient is currently awake and alert and has no physical complaints. [facility] but had multiple seizures or recurrent seizures at that time. The patient says that he does have a primary care physician and a neurologist but cannot currently remember their name. He did not receive anything for his symptoms prior to presentation or in route with EMS. ED Past Medical Hx - Past Medical History Hx Congestive Heart Failure: No Hx Diabetes: No Hx Seizures: Yes Hx Asthma: No Hx COPD: No - Social History Smoking Status: Never Smoker Substance Use Type: Marijuana - Medications Home Medications: Home Medications Medication Instructions Recorded Confirmed Last Taken Type Phenytoin [Dilantin] 200 mg PO Q12HR #60 capsule.er 02/05/18 Unknown Rx ED Review of Systems ROS: Stated complaint: SEIZURE Other details as noted in HPI Comment: All other systems reviewed and negative Constitutional: denies: chills, fever Eyes: denies: eye pain, eye discharge, vision change ENT: denies: ear pain, throat pain Respiratory: denies: cough, shortness of breath, wheezing Cardiovascular: denies: chest pain, palpitations Gastrointestinal: denies: abdominal pain, nausea, diarrhea Genitourinary: denies: urgency, dysuria Musculoskeletal: denies: back pain, joint swelling, arthralgia Skin: denies: rash, lesions Neurological: denies: headache, weakness, paresthesias Physical Exam - Physical Exam Vital Signs: Vital Signs 02/13/18 02/13/18 03:36 03:44 Temperature 98.8 F 98.8 F Pulse Rate 86 86 Respiratory 14 Rate Blood Pressure 127/81 Blood Pressure 127/81 [Left] O2 Sat by Pulse 95 95 Oximetry Physical Exam: GENERAL: The patient is well-developed well-nourished. HENT: Normocephalic. Atraumatic. Patient has moist mucous membranes. EYES: Extraocular motions are intact. Pupils equal reactive to light bilaterally. No nystagmus. NECK: Supple. Trachea is midline. CHEST/LUNGS: Clear to auscultation. There is no respiratory distress noted. HEART/CARDIOVASCULAR: Regular. There is no tachycardia. There is no murmur. ABDOMEN: Abdomen is soft, nontender. Patient has normal bowel sounds. There is no abdominal distention. SKIN: Skin is warm and dry. NEURO: The patient is awake, alert, and oriented. The patient is cooperative. The patient has no focal neurologic deficits. The patient has normal speech. Cranial nerves II through XII grossly intact. MUSCULOSKELETAL: There is no tenderness or deformity. There is no limitation range of motion. There is no evidence of acute injury. ED Course Vital Signs 02/13/18 02/13/18 03:36 03:44 Temperature 98.8 F 98.8 F Pulse Rate 86 86 Respiratory 14 Rate Blood Pressure 127/81 Blood Pressure 127/81 [Left] O2 Sat by Pulse 95 95 Oximetry ED Medical Decision Making - Lab Data Result diagrams: 02/13/18 03:45 02/13/18 03:45 - EKG Data -: EKG Interpreted by Or EKG shows normal: sinus rhythm, axis, intervals, QRS complexes, ST-T waves Rate: normal - EKG Data When compared to previous EKG there are: previous EKG unavailable Interpretation: normal EKG - Medical Decision Making Patient presents after having one seizure witnessed at home. The patient has a history of seizures. He is awake and alert and has no complaints at this time. Labs have been mostly unremarkable except for his Dilantin level is subtherapeutic and this may be the reason for his seizure this evening. He was given a loading dose of Dilantin here. EKG does not show any signs of ST elevation NC or dysrhythmia. Vital signs stable throughout his ED course. He was reevaluated multiple times for multiple hours and there has been no further seizure-like activity. Since the patient has a history of seizures, is awake and alert and has no complaints, I did not feel that repeat imaging of the brain was necessary at this time. He was discharged home to follow-up with neurology and encouraged to return to the emergency Department with any worsening of his symptoms or any acute distress. Critical Care Time: No Critical care attestation.: If time is entered above; I have spent that time in minutes in the direct care of this critically ill patient, excluding procedure time. ED Disposition Clinical Impression: Seizure disorder, Subtherapeutic serum dilantin level Disposition: TO HOME OR SELFCARE Is pt being admited?: No Condition: Stable Instructions: Epilepsy (ED) Additional Instructions: Please continue with your Dilantin medication. Follow-up with your neurologist and in case you do not have one, I have given you a referral for a local neurologist, Dr. Chen. Return to the emergency department with any recurrence of your seizures or with any acute distress. Referrals: MYRON CHEN MD [Staff Physician] - 3-5 Days Time of Disposition: 06:24
== END 2018-02-13 07:09 | disposition home or self-care (01) ==
LOC: ED 03:05
DX: G40.909 Epilepsy, unspecified, not intractable, without status epilepticus (principal); R89.2 Abnormal level of other drugs, medicaments and biological substances in specimens from other organs, systems and tissues; F12.10 Cannabis abuse, uncomplicated
CPT/HCPCS: 36415; 80053; 80185; 80307; 81001; 85025; 93005; 93010; 96365; 99284; G0480; J1165; J7050; 80320

== ENCOUNTER 2018-08-05 12:36 | Emergency (ER) | payer SELFPAY ==
--- NOTE | 2018-08-05 13:18 | Emergency Department Report ---
HPI - General Chief Complaint: Seizure Time Seen by Provider: 08/05/18 13:02 - HPI HPI: 38-year-old Ethiopian male presents to the emergency department via EMS from work after he had a seizure or seizure-like activity witnessed by his coworkers. Patient denies having any aura or any idea that a seizure would be coming on. The patient does admit to drinking moderately heavily over the past 3-4 days, with last drink being yesterday. He denies any alcohol dependence or any history of withdrawals. He does have a seizure history for which he takes Dilantin. He is unable to tell me exactly how much he takes but says he takes "3 pills at night" and it has been about 3 days since he last took this medication. He does not have a current primary care physician or a neurologist. Currently the patient is awake and alert with no complaints. He denies any illicit drug use. No recent travel. ED Past Medical Hx - Past Medical History Previous Medical History?: Yes Hx Congestive Heart Failure: No Hx Diabetes: No Hx Seizures: Yes Hx Asthma: No Hx COPD: No - Social History Smoking Status: Never Smoker Substance Use Type: Alcohol - Medications Home Medications: Home Medications Medication Instructions Recorded Confirmed Last Taken Type Phenytoin [Dilantin] 200 mg PO Q12HR #60 capsule.er 08/05/18 Unknown Rx ED Review of Systems ROS: Stated complaint: SEIZURE Other details as noted in HPI Comment: All other systems reviewed and negative Constitutional: denies: chills, fever Eyes: denies: eye pain, eye discharge, vision change ENT: denies: ear pain, throat pain Respiratory: denies: cough, shortness of breath, wheezing Cardiovascular: denies: chest pain, palpitations Gastrointestinal: denies: abdominal pain, nausea, diarrhea Genitourinary: denies: urgency, dysuria Musculoskeletal: denies: back pain, joint swelling, arthralgia Skin: denies: rash, lesions Neurological: other (seizure). denies: headache, weakness, paresthesias Physical Exam - Physical Exam Vital Signs: Vital Signs 08/05/18 12:58 Temperature 98.5 F Pulse Rate 77 Respiratory 18 Rate Blood Pressure 134/79 [Left] O2 Sat by Pulse 97 Oximetry Physical Exam: GENERAL: The patient is well-developed well-nourished. HENT: Normocephalic. Atraumatic. Patient has moist mucous membranes. EYES: Extraocular motions are intact. Pupils equal reactive to light bilaterally. No nystagmus. NECK: Supple. Trachea is midline. CHEST/LUNGS: Clear to auscultation. There is no respiratory distress noted. HEART/CARDIOVASCULAR: Regular. There is no tachycardia. There is no murmur. ABDOMEN: Abdomen is soft, nontender. Patient has normal bowel sounds. There is no abdominal distention. SKIN: Skin is warm and dry. NEURO: The patient is awake, alert, and oriented. The patient is cooperative. The patient has no focal neurologic deficits. The patient has normal speech. Cranial nerves II through XII grossly intact. No pronator drift. No dysmetria. MUSCULOSKELETAL: There is no tenderness or deformity. There is no limitation range of motion. There is no evidence of acute injury. ED Course Vital Signs 08/05/18 12:58 Temperature 98.5 F Pulse Rate 77 Respiratory 18 Rate Blood Pressure 134/79 [Left] O2 Sat by Pulse 97 Oximetry ED Medical Decision Making - Lab Data Result diagrams: 08/05/18 13:40 08/05/18 13:04 - EKG Data -: EKG Interpreted by [facility] EKG shows normal: sinus rhythm (ventricular bigeminy), axis, intervals, QRS complexes (Q waves to the septal leads), ST-T waves (nonspecific ST-T waves) Rate: normal - EKG Data When compared to previous EKG there are: changes noted (EKG currently has ventricular bigeminy not seen on previous EKG) - Medical Decision Making The patient presented after he had a witnessed seizure at work prior to presentation. The patient has been noncompliant with his medication for the past 3 days and has had a few days of some recent increased alcohol usage. Since being in the emergency department he is awake, alert and in no acute distress. There is no focal, motor or sensory deficits and his cranial nerves have been intact. Patient's labs were unremarkable and did not show any etiology of the seizure. He was loaded with phenytoin as his phenytoin level came back essentially 0. EKG showed some ventricular bigeminy but otherwise there was no significant dysrhythmia and no signs of any ST elevation [place]. Since the patient does have a history of seizures, is subtherapeutic on his seizure medications and had one single seizure without any return of any seizures in the emergency department or any neurological deficits, I did not feel that CT imaging of the head was necessary at this time. She had no complaint of any headache, chest pain, shortness of breath. Prior to discharge , the patient was ambulatory and appeared stable. He will be discharged home with a refill of his phenytoin and he has been given referrals for primary care and neurology. We had a long conversation about avoiding any further alcohol use as it can decrease his seizure threshold. He has been instructed to return to the emergency department immediately with any worsening of his symptoms or with any acute distress. - Differential Diagnosis epilepsy, medication noncompliance, dysrhythmia, electrolyte abnormalities Critical Care Time: No Critical care attestation.: If time is entered above; I have spent that time in minutes in the direct care of this critically ill patient, excluding procedure time. ED Disposition Clinical Impression: Seizure disorder, Noncompliance with medication regimen Disposition: TO HOME OR SELFCARE Is pt being admited?: No Condition: Stable Instructions: Recurrent Seizures Adult (ED) Additional Instructions: Please follow up with a primary care physician and a neurologist as soon as possible. I have given you a referral for a local neurologist, Dr. Chen. I recommend avoiding any further alcohol use as this can lower your seizure threshold. I am restarting you on your seizure medication. Return to the emergency Department with any worsening of your symptoms or any acute distress. Prescriptions: Phenytoin [Dilantin] 200 mg PO Q12HR #60 capsule.er Referrals: PRIMARY MD ZULEMA [Primary Care Provider] - 2-3 Days MYRON CHEN MD [Staff Physician] - 2-3 Days DELROY DARDEN MD [Staff Physician] - 2-3 Days [facility] [Outside] - 2-3 Days Time of Disposition: 16:43
[2018-08-05 13:35] LABS: Red Blood Count TNR M/mm3 (3.65-5.03)
[2018-08-05 13:36] LABS: Hematocrit TNR % (35.5-45.6); Hemoglobin TNR gm/dl (11.8-15.2); Mean Corpuscular HGB Conc TNR % (32-34); Mean Corpuscular Hemoglobin TNR pg (28-32); Mean Corpuscular Volume TNR fl (84-94); Platelet Count TNR K/mm3 (140-440); Red Cell Distribution Width TNR % (13.2-15.2)
[2018-08-05 13:36] LABS: BUN/Creatinine Ratio 9; Blood Urea Nitrogen 12 mg/dL (9-20); Calcium 8.4 mg/dL (8.4-10.2); Hemolysis Index 4
[2018-08-05 13:39] LABS: Alanine Aminotransferase 10 units/L (7-56); Albumin 3.8 g/dL (3.9-5)
[2018-08-05 13:42] LABS: Bilirubin,Direct < 0.2 mg/dL (0-0.2)
[2018-08-05] MEDS ORDERED: DILANTIN 1,000 MG in NACL 0.9% 250ML 250 ML IV ONE (13:51)
[2018-08-05 13:53] LABS: Hematocrit 36.6 % (35.5-45.6); Hemoglobin 12.4 gm/dl (11.8-15.2); Mean Corpuscular HGB Conc 34 % (32-34); Mean Corpuscular Hemoglobin 31 pg (28-32); Mean Corpuscular Volume 91 fl (84-94); Platelet Count 234 K/mm3 (140-440); Red Blood Count 4.02 M/mm3 (3.65-5.03); Red Cell Distribution Width 13.6 % (13.2-15.2)
[2018-08-05 13:58] LABS: Basophils % (Auto) 0.4 % (0.0-1.8); Eosinophils # (Auto) 0.1 K/mm3 (0.0-0.4); Eosinophils % (Auto) 1.3 % (0.0-4.3); Hematocrit 36.6 % (35.5-45.6); Hemoglobin 12.4 gm/dl (11.8-15.2); Lymphocytes # (Auto) 1.2 K/mm3 (1.2-5.4); Lymphocytes % (Auto) 21.3 % (13.4-35.0); Mean Corpuscular HGB Conc 34 % (32-34); Mean Corpuscular Hemoglobin 31 pg (28-32); Mean Corpuscular Volume 91 fl (84-94); Monocytes # (Auto) 0.4 K/mm3 (0.0-0.8); Monocytes % (Auto) 7.7 % (0.0-7.3); Platelet Count 235 K/mm3 (140-440); Red Blood Count 4.01 M/mm3 (3.65-5.03); Red Cell Distribution Width 13.5 % (13.2-15.2)
[2018-08-05 15:33] LABS: Bilirubin,Urine NEG (Negative); Blood,Urine SM (Negative); Color,Urine Yellow (Yellow); Protein,Urine <15 mg/dL mg/dL (Negative); RBC,Urine < 1.0 /HPF (0.0-6.0); Urobilinogen,Urine < 2.0 mg/dL (<2.0)
[2018-08-05 15:36] LABS: WBC,Urine < 1.0 /HPF (0.0-6.0)
[2018-08-05 15:42] LABS: Amphetamine Screen,Urine PRESUMPTIVE NEGATIVE; Benzodiazepines Screen,Urine PRESUMPTIVE NEGATIVE; Cannabinoid Screen,Urine PRESUMPTIVE NEGATIVE; Cocaine Screen,Urine PRESUMPTIVE NEGATIVE; Methadone Screen,Urine PRESUMPTIVE NEGATIVE; Opiate Screen,Urine PRESUMPTIVE NEGATIVE
[2018-08-05 17:22] VITALS: BP 145/72
== END 2018-08-05 17:21 | disposition home or self-care (01) ==
LOC: ED 12:36
DX: G40.909 Epilepsy, unspecified, not intractable, without status epilepticus (principal)
CPT/HCPCS: 36415; 80048; 80074; 80185; 80307; 81001; 84443; 85025; 85027; 93005; 93010; 96365; 99284; J1165; J7050

== ENCOUNTER 2019-07-15 17:44 | Emergency (ER) | payer SELFPAY ==
--- NOTE | 2019-07-15 18:28 | Event Note ---
ED Screening Note Date of service: 07/15/19 Time: 18:27 ED Screening Note: 39 y o male presents s/p seizure that happened yesterday This initial assessment/diagnostic orders/clinical plan/treatment(s) is/are subject to change based on patients health status, clinical progression and re-assessment by fellow clinical providers in the ED. Further treatment and workup at subsequent clinical providers discretion. Patient/guardian urged not to elope from the ED as their condition may be serious if not clinically assessed and managed. Initial orders include: labs, urine
[2019-07-15 18:47] LABS: Basophils % (Auto) 0.3 % (0.0-1.8); Eosinophils # (Auto) 0.1 K/mm3 (0.0-0.4); Eosinophils % (Auto) 1.9 % (0.0-4.3); Hematocrit 43.3 % (35.5-45.6); Hemoglobin 14.5 gm/dl (11.8-15.2); Lymphocytes # (Auto) 2.2 K/mm3 (1.2-5.4); Lymphocytes % (Auto) 35.1 % (13.4-35.0); Mean Corpuscular HGB Conc 34 % (32-34); Mean Corpuscular Volume 94 fl (84-94); Monocytes # (Auto) 0.5 K/mm3 (0.0-0.8); Monocytes % (Auto) 8.6 % (0.0-7.3); Platelet Count 231 K/mm3 (140-440); Red Blood Count 4.63 M/mm3 (3.65-5.03); Red Cell Distribution Width 13.1 % (13.2-15.2)
[2019-07-15 19:06] LABS: Alanine Aminotransferase 12 units/L (7-56); Albumin 4.4 g/dL (3.9-5); BUN/Creatinine Ratio 12; Blood Urea Nitrogen 19 mg/dL (9-20); Calcium 9.6 mg/dL (8.4-10.2); Hemolysis Index 11
[2019-07-15 20:37] LABS: Bilirubin,Urine NEG (Negative); Blood,Urine NEG (Negative); Color,Urine Yellow (Yellow); Mucus,Urine 2+ /HPF; Protein,Urine <15 mg/dL mg/dL (Negative)
[2019-07-15 20:42] LABS: Amphetamine Screen,Urine PRESUMPTIVE NEGATIVE; Benzodiazepines Screen,Urine PRESUMPTIVE NEGATIVE; Cannabinoid Screen,Urine PRESUMPTIVE NEGATIVE; Cocaine Screen,Urine PRESUMPTIVE NEGATIVE; Methadone Screen,Urine PRESUMPTIVE NEGATIVE; Opiate Screen,Urine PRESUMPTIVE NEGATIVE
--- NOTE | 2019-07-15 21:59 | Emergency Department Report ---
ED Seizure HPI - General Chief Complaint: Seizure Stated Complaint: SEIZURES Time Seen by Provider: 07/15/19 18:27 Source: patient Mode of arrival: Ambulatory Limitations: No Limitations - History of Present Illness Initial Comments: Patient is 39 years old male with history of seizure on Dilantin 100 mg 3 times a day. Patient presented to the ER accompanied by his mother stating that he had 2 seizures. One was yesterday and the other one was 2 day. Patient stated that he is out of his Dilantin. Patient denied any injury. Patient also denied any fever or chills. MD Complaint: seizure -: Last night Description of Episode: loss of consciousness, tonic-clonic movement Witnessed:: Yes Trauma: No Seizure History: known seizure disorder Place: home Possible Precipitating Event: none Associated Symptoms: denies other symptoms Treatments Prior to Arrival: none - Related Data Previous Rx's Medication Instructions Recorded Last Taken Type Phenytoin [Dilantin] 200 mg PO Q12HR #60 capsule.er 08/05/18 Unknown Rx Allergies Allergy/AdvReac Type Severity Reaction Status Date / Time No Known Allergies Allergy Verified 01/14/18 11:17 ED Review of Systems ROS: Stated complaint: SEIZURES Other details as noted in HPI Comment: All other systems reviewed and negative Constitutional: denies: chills, fever Respiratory: denies: cough, orthopnea, shortness of breath, SOB with exertion, SOB at rest, wheezing Cardiovascular: denies: chest pain, palpitations, dyspnea on exertion Gastrointestinal: denies: abdominal pain, nausea, vomiting, diarrhea, c onstipation, hematemesis, melena, hematochezia Musculoskeletal: denies: back pain Neurological: denies: headache, weakness, numbness, paresthesias, confusion, abnormal gait ED Past Medical Hx - Past Medical History Previous Medical History?: Yes Hx Congestive Heart Failure: No Hx Diabetes: No Hx Seizures: Yes Hx Asthma: No Hx COPD: No - Social History Smoking Status: Former Smoker Substance Use Type: None - Medications Home Medications: Home Medications Medication Instructions Recorded Confirmed Last Taken Type Phenytoin [Dilantin] 200 mg PO Q12HR #60 capsule.er 08/05/18 Unknown Rx ED Physical Exam - General Limitations: No Limitations General appearance: alert, in no apparent distress - Head Head exam: Present: atraumatic, normocephalic, normal inspection - Eye Eye exam: Present: normal appearance Pupils: Present: normal accommodation - ENT ENT exam: Present: normal exam, normal orophraynx, mucous membranes moist - Neck Neck exam: Present: normal inspection, full ROM. Absent: tenderness, meningismus, lymphadenopathy, thyromegaly - Respiratory Respiratory exam: Present: normal lung sounds bilaterally - Cardiovascular Cardiovascular Exam: Present: regular rate, normal rhythm, normal heart sounds - GI/Abdominal GI/Abdominal exam: Present: soft, normal bowel sounds. Absent: distended, tenderness, guarding, rebound, rigid, organomegaly, mass, bruit, pulsatile mass, hernia - Extremities Exam Extremities exam: Present: normal inspection, full ROM, normal capillary refill. Absent: tenderness, pedal edema, joint swelling, calf tenderness - Back Exam Back exam: Present: normal inspection, full ROM. Absent: CVA tenderness (R), CVA tenderness (L), muscle spasm, paraspinal tenderness, vertebral tenderness, rash noted - Neurological Exam Neurological exam: Present: alert, oriented X3, CN II-XII intact, normal gait, reflexes normal. Absent: abnormal gait, motor sensory deficit - Psychiatric Psychiatric exam: Present: normal mood - Skin Skin exam: Present: warm, intact, normal color ED Course Vital Signs 07/15/19 07/15/19 18:22 21:19 Temperature 98.3 F Pulse Rate 69 Respiratory 18 18 Rate Blood Pressure 122/73 O2 Sat by Pulse 98 98 Oximetry ED Medical Decision Making - Lab Data Result diagrams: 07/15/19 18:33 07/15/19 18:33 - Medical Decision Making Patient is 39 years old male with history of seizure on Dilantin 100 mg 3 times a day. Patient presented to the ER accompanied by his mother stating that he had 2 seizures. One was yesterday and the other one was 2 day. Patient stated that he is out of his Dilantin. Patient denied any injury. Patient also denied any fever or chills. Patient labs reviewed and is unremarkable except for low Dilantin level. Patient received 1 g of Dilantin IV. No seizure observed in the ER. Patient a lso given a prescription Dilantin 100 mg 3 times a day and advised to follow-up with his neurologist in the next 2-3 days. Patient also advised to return to the ER if he developed any new symptoms. Critical care attestation.: If time is entered above; I have spent that time in minutes in the direct care of this critically ill patient, excluding procedure time. ED Disposition Clinical Impression: Seizure disorder Disposition: DC-01 TO HOME OR SELFCARE Is pt being admited?: No Condition: Stable Instructions: Recurrent Seizures Adult (ED) Referrals: PRIMARY CARE, [Referring] - 3-5 Days
[2019-07-15] MEDS ORDERED: DILANTIN 1,000 MG in NACL 0.9% 250ML 250 ML IV ONE (23:00)
[2019-07-16 00:47] VITALS: BP 126/68
== END 2019-07-16 00:57 | disposition home or self-care (01) ==
LOC: ED 17:44
DX: G40.909 Epilepsy, unspecified, not intractable, without status epilepticus (principal); Z87.891 Personal history of nicotine dependence
CPT/HCPCS: 36415; 80053; 80185; 80307; 81001; 85025; 96365; 99283; J1165; J7050

== ENCOUNTER 2019-12-18 18:25 | Emergency (ER) | payer SELFPAY ==
[2019-12-18 19:49] VITALS: BP 136/72
--- NOTE | 2019-12-18 20:50 | Emergency Department Report ---
Chief Complaint: Recheck/Abnormal Lab/Rx Stated Complaint: MED REFILL Time Seen by Provider: 12/18/19 20:46 - HPI History of Present Illness: pt is a 39 y/o presents for refill of dilantin. pt has 2 weeks worth of pills but needs a refill before he runs out. no recent sz activity. no pain. no complaints. ED Past Medical Hx - Past Medical History Previous Medical History?: Yes Hx Hypertension: No Hx CVA: No Hx Heart Attack/AMI: No Hx Congestive Heart Failure: No Hx Diabetes: No Hx Deep Vein Thrombosis: No Hx Pulmonary Embolism: No Hx GERD: No Hx Liver Disease: No Hx Renal Disease: No Hx Sickle Cell Disease: Yes Hx Arthritis: No Hx Headaches / Migraines: no Hx Seizures: yes Hx Kidney Stones: No Hx Psychiatric Treatment: No Hx Asthma: No Hx COPD: No Hx Tuberculosis: No Hx Dementia: No Hx HIV: No - Surgical History Past Surgical History?: No Hx Coronary Stent: No Hx Open Heart Surgery: No Hx Pacemaker: No Hx Internal Defibrillator: No Hx Cholecystectomy: No Hx Appendectomy: No Hx Breast Surgery: No - Family History Family history: no significant - Social History Smoking Status: Never Smoker Substance Use Type: no - ROS Review of Systems: ED Review of Systems ROS: Stated complaint: med refill. Other details as noted in HPI Constitutional: denies: chills, fever Eyes: denies: eye pain, eye discharge, vision change ENT: denies: ear pain, throat pain Respiratory: denies: cough, shortness of breath, wheezing Cardiovascular: denies: chest pain, palpitations Endocrine: no symptoms reported Gastrointestinal: denies: abdominal pain, nausea, diarrhea Genitourinary: denies: urgency, dysuria, discharge Musculoskeletal: denies: back pain, joint swelling, arthralgia Skin: denies: rash, lesions Neurological: denies: headache, weakness, paresthesias Psychiatric: denies: anxiety, depression Hematological/Lymphatic: denies: easy bleeding, easy bruising - Exam Vital Signs: Vital Signs 12/18/19 19:48 Temperature 97.8 F Pulse Rate 61 Respiratory 20 Rate Blood Pressure 136/72 O2 Sat by Pulse 100 Oximetry Physical Exam: ED Physical Exam - General Limitations: No Limitations General appearance: alert, in no apparent distress - Head Head exam: Present: atraumatic, normocephalic - Eye Eye exam: Present: normal appearance - ENT ENT exam: Present: mucous membranes moist - Neck Neck exam: Present: normal inspection - Respiratory Respiratory exam: Present: normal lung sounds bilaterally. Absent: respiratory distress, wheezes, rales - Cardiovascular Cardiovascular Exam: Present: regular rate, normal rhythm. Absent: systolic murmur, diastolic murmur, rubs, gallop - GI/Abdominal GI/Abdominal exam: Present: soft, normal bowel sounds. Absent: distended, tenderness, guarding - Rectal Rectal exam: Present: deferred - Extremities Exam Extremities exam: Present: normal inspection, full ROM, - Neurological Exam Neurological exam: Present: alert, oriented X3 - Psychiatric Psychiatric exam: Present: normal affect, normal mood - Skin Skin exam: Present: warm, dry, intact, normal color. Absent: rash MSE screening note: Focused history and physical exam performed. Due to findings the following was ordered: ED Medical Decision Making - Medical Decision Making pt is 39 y/o male that presents for med refill. mse left. - Differential Diagnosis med refill. ED Disposition for MSE Clinical Impression: Seizure disorder, Medication refill Disposition: Z-07 MED SCREENING EXAM-LEFT Is pt being admited?: No Does the pt Need Aspirin: No Condition: Stable Instructions: Epilepsy (ED) Additional Instructions: Patient to follow up with primary care in 2-3 days. Patient to return to ER if condition worsens or new symptoms arise or symptoms change. Patient to increase water. Patient to rest. pt to see pcp for refills. pt to cont all meds. Referrals: KEVIN EPSTEIN MD [Staff Physician] - 2-3 Days ENEIDA KAY MD [Staff Physician] - 2-3 Days Time of Disposition: 20:52
== END 2019-12-18 21:00 | disposition left against medical advice (07) ==
LOC: ED 18:25
DX: G40.909 Epilepsy, unspecified, not intractable, without status epilepticus (principal); I10 Essential (primary) hypertension; D57.1 Sickle-cell disease without crisis; Z76.0 Encounter for issue of repeat prescription
CPT/HCPCS: 99281

== ENCOUNTER 2021-04-23 10:26 | Emergency (ER) | payer SELFPAY ==
[2021-04-23] MEDS ORDERED: BUTALB/ACETAMINOPHEN/CAFFEINE TAB PO ONE (10:45)
[2021-04-23] MEDS ORDERED: LORazepam 2 MG/ML VIAL IV ONE (10:45)
--- NOTE | 2021-04-23 10:50 | Emergency Department Report ---
HPI - General Chief Complaint: Seizure Time Seen by Provider: 04/23/21 10:30 - HPI HPI: Room 1 Patient is a 41-year-old male present with chief complaint of seizures. The patient states his only memory is walking to [employer] and then awakening with EMS. The patient reportedly had a generalized tonic-clonic seizure. Patient has a history of seizures but states he ran out of his Dilantin approximately 3 months ago. Patient states his last seizure before today occurred approximately 2 weeks ago. Patient complains of a slight headache and pain from lip abrasion.Patient gives his pain a score of 5/10 ED Past Medical Hx - Past Medical History Hx Seizures: Yes - Surgical History Past Surgical History?: No Additional Surgical History: ankle surgery - Family History Family history: no significant - Social History Smoking Status: Never Smoker Substance Use Type: None (Denies illicit drug use), Alcohol (Occasional) - Medications Home Medications: Home Medications Medication Instructions Recorded Confirmed Last Taken Type Phenytoin [Dilantin] 200 mg PO Q12HR #60 capsule.er 08/05/18 Unknown Rx Phenytoin [Dilantin] 100 mg PO Q8HR #90 capsule 07/15/19 Unknown Rx Chlorhexidine Mouthwash [Peridex] 15 ml MM BID #1 bottle 04/23/21 Unknown Rx Phenytoin [Dilantin] 100 mg PO Q8HR #90 capsule 04/23/21 Unknown Rx ED Review of Systems ROS: Stated complaint: SEIZURE Other details as noted in HPI Constitutional: no symptoms reported Eyes: denies: eye pain ENT: other (Lip laceration) Respiratory: no symptoms reported Cardiovascular: denies: chest pain Endocrine: no symptoms reported Gastrointestinal: denies: abdominal pain Genitourinary: denies: dysuria Musculoskeletal: denies: back pain Neurological: headache Physical Exam - Physical Exam Vital Signs: Vital Signs 04/23/21 10:36 Temperature 98 F Pulse Rate 104 H Respiratory 16 Rate Blood Pressure 152/84 O2 Sat by Pulse 96 Oximetry Physical Exam: GENERAL: The patient is well-developed well-nourished male lying on stretcher not appearing to be in acute distress. [] HEENT: Normocephalic. Atraumatic. Extraocular motions are intact. Approximately 3 mm laceration to the mucosal side of the lower lip. Hemostatic. Dried blood around the lips NECK: Supple. Trachea midline CHEST/LUNGS: Clear to auscultation. There is no respiratory distress noted. HEART/CARDIOVASCULAR: Regular. There is no tachycardia. There is no gallop rub or murmur. ABDOMEN: Abdomen is soft, nontender. Patient has normal bowel sounds. There is no abdominal distention. SKIN: There is no rash. There is no edema. There is no diaphoresis. NEURO: The patient is awake, alert, and oriented. The patient is cooperative. The patient has no focal neurologic deficits. The patient has normal speech. Cranial nerves II through XII grossly intact MUSCULOSKELETAL: There is no evidence of acute injury. ED Course Vital Signs 04/23/21 10:36 Temperature 98 F Pulse Rate 104 H Respiratory 16 Rate Blood Pressure 152/84 O2 Sat by Pulse 96 Oximetry ED Medical Decision Making - Lab Data Result diagrams: 04/23/21 11:01 04/23/21 15:09 Laboratory Tests 04/23/21 04/23/21 04/23/21 11:01 11:01 11:01 WBC 5.1 RBC 4.32 Hgb 14.3 Hct 41.4 MCV 96 H MCH 33 H MCHC 34 RDW 13.9 Plt Count 260 Lymph % (Auto) 27.1 [place] % (Auto) 7.8 H Eos % (Auto) 1.2 Baso % (Auto) 0.5 Lymph # (Auto) 1.4 [place] # (Auto) 0.4 Eos # (Auto) 0.1 Baso # (Auto) 0.0 Seg Neutrophils % 63.4 Seg Neutrophils # 3.2 Sodium 137 Potassium 4.2 Chloride 95.2 L Carbon Dioxide 16 L Anion Gap 30 BUN 9 Creatinine 1.3 Estimated GFR > 60 BUN/Creatinine Ratio 7 Glucose 83 Calcium 9.1 Magnesium 2.20 Phenytoin 0.8 L 04/23/21 15:09 WBC RBC Hgb Hct MCV MCH MCHC RDW Plt Count Lymph % (Auto) [place] % (Auto) Eos % (Auto) Baso % (Auto) Lymph # (Auto) [place] # (Auto) Eos # (Auto) Baso # (Auto) Seg Neutrophils % Seg Neutrophils # Sodium 138 Potassium 4.3 Chloride 102.4 Carbon Dioxide 24 D Anion Gap 16 BUN 9 Creatinine 1.2 Estimated GFR > 60 BUN/Creatinine Ratio 8 Glucose 82 Calcium 8.6 Magnesium Phenytoin - EKG Data -: EKG Interpreted by [facility] EKG shows normal: sinus rhythm Rate: normal - EKG Data When compared to previous EKG there are: previous EKG unavailable Interpretation: other (No ischemic changes seen) - Differential Diagnosis Seizure, lip laceration Critical care attestation.: If time is entered above; I have spent that time in minutes in the direct care of this critically ill patient, excluding procedure time. ED Disposition Clinical Impression: Seizure, Lip laceration Disposition: DC- TO HOME OR SELFCARE Is pt being admited?: No Does the pt Need Aspirin: No Condition: Stable Instructions: Epilepsy, Loyl-mw-Tlof Additional Instructions: Return to the emergency department should you develop worsening symptoms, inability to tolerate food or liquids, high fever or any other concerns Prescriptions: Phenytoin [Dilantin] 100 mg PO Q8HR #90 capsule Chlorhexidine Mouthwash [Peridex] 15 ml MM BID #1 bottle Referrals: PRIMARY CARE, [Primary Care Provider] - 3-5 Days Time of Disposition: 15:50
[2021-04-23 12:06] LABS: Basophils % (Auto) 0.5 % (0.0-1.8); Eosinophils # (Auto) 0.1 K/mm3 (0.0-0.4); Eosinophils % (Auto) 1.2 % (0.0-4.3); Hematocrit 41.4 % (35.5-45.6); Hemoglobin 14.3 gm/dl (11.8-15.2); Lymphocytes # (Auto) 1.4 K/mm3 (1.2-5.4); Lymphocytes % (Auto) 27.1 % (13.4-35.0); Mean Corpuscular HGB Conc 34 % (32-34); Mean Corpuscular Volume 96 fl (84-94); Monocytes # (Auto) 0.4 K/mm3 (0.0-0.8); Monocytes % (Auto) 7.8 % (0.0-7.3); Platelet Count 260 K/mm3 (140-440); Red Blood Count 4.32 M/mm3 (3.65-5.03); Red Cell Distribution Width 13.9 % (13.2-15.2)
[2021-04-23 12:23] LABS: BUN/Creatinine Ratio 7; Blood Urea Nitrogen 9 mg/dL (9-20); Calcium 9.1 mg/dL (8.4-10.2); Hemolysis Index 8
[2021-04-23] MEDS ORDERED: SODIUM CHLORIDE 0.9% 1000 ML 1,000 ML IV ONE ×2 (12:35→13:36)
[2021-04-23] MEDS ORDERED: FOSPHENYTOIN 1,000 MG.PE in SODIUM CHLORIDE 0.9% 100 ML IV ONE (14:02)
[2021-04-23 15:47] LABS: BUN/Creatinine Ratio 8; Blood Urea Nitrogen 9 mg/dL (9-20); Calcium 8.6 mg/dL (8.4-10.2); Hemolysis Index 7
[2021-04-23 15:58] VITALS: BP 142/73
--- NOTE | 2021-04-26 09:48 | Electrocardiograph Report ---
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
== END 2021-04-23 16:05 | disposition home or self-care (01) ==
LOC: ED 10:26
DX: S01.511A Laceration without foreign body of lip, initial encounter (principal); R56.9 Unspecified convulsions; Z72.89 Other problems related to lifestyle; Z86.69 Personal history of other diseases of the nervous system and sense organs; Z79.899 Other long term (current) drug therapy; X58.XXXA Exposure to other specified factors, initial encounter; Y93.89 Activity, other specified; Y92.89 Other specified places as the place of occurrence of the external cause; Y99.8 Other external cause status
CPT/HCPCS: 36415; 80048; 80185; 83735; 85025; 93005; 96361; 96365; 96375; 99284; J2060; J7030; Q2009

== ENCOUNTER 2021-07-24 14:47 | Emergency (ER) | payer SELFPAY ==
[2021-07-24] MEDS ORDERED: SODIUM CHLORIDE 0.9% 1000 ML 1,000 ML IV ONE (14:51)
[2021-07-24] MEDS ORDERED: levETIRAcetam 1000 MG/NS 0.75% 1,000 MG/100 ML BAG IV ONE (14:51)
[2021-07-24] MEDS ORDERED: LORazepam 2 MG/ML VIAL IV ONE (14:51)
--- NOTE | 2021-07-24 14:54 | Event Note ---
ED Screening Note ED Screening Note: 41-year-old male with past medical history of epilepsy for which he is noncompliant with therapy and a current history of alcoholism which he states he utilizes to treat his epilepsy presents emerge department complaining of onset altered mental status, lethargy, which is preceded by his possible syncope. P resents emerged department with his mom who is unsure of what what happened states he has numbness and tingling to his legs this morning complaining of headache is unsure when he had taken his last drink. He began to have cognition issues half an hour or so prior to arrival which is the reason for his visit. Ports no trauma This initial assessment/diagnostic orders/clinical plan/treatment(s) is/are subject to change based on patients health status, clinical progression and re- assessment by fellow clinical providers in the ED. Further treatment and workup at subsequent clinical providers discretion. Patient/guardian urged not to elope from the ED as their condition may be serious if not clinically assessed and managed. Initial orders include: . Seizure/altered mental status status full work-up. Started on fluids, Keppra Ativan and have him follow-up with the physician in the main
--- NOTE | 2021-07-24 15:23 | Emergency Department Report ---
ED Seizure HPI - General Chief Complaint: Neuro Symptoms/Deficit Stated Complaint: UNRESPONSIVE, Time Seen by Provider: 07/24/21 15:16 Source: family Mode of arrival: Wheelchair Limitations: Physical Limitation - History of Present Illness Initial Comments: Patient is 41 years old male with history of seizure and chronic alcoholism. Patient is noncompliant with his medication. Patient brought to the emergency room by his mother for evaluation of seizure. Patient mother stated that she found him confused and altered possibly post ictal. I evaluated him before patient was taking Dilantin but he is not compliant with his medication. Patient also admitted drinking alcohol every day. He also admitted that he had history of alcohol withdrawal seizure. Patient now is alert, oriented x3 in no acute distress. Patient denied any fever or chills. No cough, chest pain or shortness of breath. Patient denied any weakness numbness or tingling sen sation. No bowel or bladder incontinence. MD Complaint: seizure -: Sudden Description of Episode: loss of consciousness, tonic-clonic movement, post-event confusion Witnessed:: Yes Trauma: No Seizure History: known seizure disorder, history of withdrawal se Place: home Possible Precipitating Event: none Associated Symptoms: denies other symptoms Treatments Prior to Arrival: none - Related Data Previous Rx's Medication Instructions Recorded Last Taken Type Phenytoin [Dilantin] 200 mg PO Q12HR #60 capsule.er 08/05/18 Unknown Rx Phenytoin [Dilantin] 100 mg PO Q8HR #90 capsule 07/15/19 Unknown Rx Chlorhexidine Mouthwash [Peridex] 15 ml MM BID #1 bottle 04/23/21 Unknown Rx Phenytoin [Dilantin] 100 mg PO Q8HR #90 capsule 04/23/21 Unknown Rx Phenytoin [Dilantin] 100 mg PO Q8HR #90 capsule 07/24/21 Unknown Rx Allergies Allergy/AdvReac Type Severity Reaction Status Date / Time No Known Allergies Allergy Verified 04/23/21 10:40 ED Review of Systems ROS: Stated complaint: UNRESPONSIVE, Other details as noted in HPI Comment: All other systems reviewed and negative Constitutional: denies: chills, fever Respiratory: denies: cough, shortness of breath, SOB with exertion Cardiovascular: denies: chest pain, palpitations Gastrointestinal: denies: abdominal pain, nausea, vomiting Musculoskeletal: denies: back pain Neurological: confusion. denies: headache, weakness, numbness, paresthesias, abnormal gait ED Past Medical Hx - Past Medical History Previous Medical History?: Yes Hx Congestive Heart Failure: No Hx Diabetes: No Hx Seizures: Yes Hx Asthma: No Hx COPD: No - Surgical History Past Surgical History?: Yes Additional Surgical History: ankle surgery - Social History Smoking Status: Never Smoker Substance Use Type: None (Denies illicit drug use), Alcohol (Occasional) - Medications Home Medications: Home Medications Medication Instructions Recorded Confirmed Last Taken Type Phenytoin [Dilantin] 200 mg PO Q12HR #60 capsule.er 08/05/18 Unknown Rx Phenytoin [Dilantin] 100 mg PO Q8HR #90 capsule 07/15/19 Unknown Rx Chlorhexidine Mouthwash [Peridex] 15 ml MM BID #1 bottle 04/23/21 Unknown Rx Phenytoin [Dilantin] 100 mg PO Q8HR #90 capsule 04/23/21 Unknown Rx Phenytoin [Dilantin] 100 mg PO Q8HR #90 capsule 07/24/21 Unknown Rx ED Physical Exam - General Limitations: Physical Limitation General appearance: alert, in no apparent distress - Head Head exam: Present: atraumatic, normocephalic, normal inspection - Eye Eye exam: Present: normal appearance, PERRL - ENT ENT exam: Present: normal exam, normal orophraynx, mucous membranes moist - Neck Neck exam: Present: normal inspection, full ROM. Absent: tenderness, meningismus - Respiratory Respiratory exam: Present: normal lung sounds bilaterally - Cardiovascular Cardiovascular Exam: Present: regular rate, normal rhythm, normal heart sounds - GI/Abdominal GI/Abdominal exam: Present: soft, normal bowel sounds. Absent: distended, tenderness, guarding, rebound, rigid, diminished bowel sounds, hyperactive bowel sounds, hypoactive bowel sounds, organomegaly, mass, bruit, pulsatile mass, hernia - Extremities Exam Extremities exam: Present: normal inspection, full ROM, normal capillary refill. Absent: tenderness - Back Exam Back exam: Present: normal inspection. Absent: CVA tenderness (R), CVA tenderness (L) - Neurological Exam Neurological exam: Present: alert, oriented X3, CN II-XII intact, reflexes normal - Psychiatric Psychiatric exam: Present: normal mood - Skin Skin exam: Present: warm, intact, normal color ED Course Vital Signs 07/24/21 07/24/21 07/24/21 14:55 15:01 15:15 Temperature 98.2 F Pulse Rate 98 H 86 81 Respiratory 16 10 L 19 Rate Blood Pressure 155/80 155/80 Blood Pressure 198/87 [Right] O2 Sat by Pulse 98 99 99 Oximetry 07/24/21 07/24/21 07/24/21 15:33 15:45 16:01 Temperature Pulse Rate 71 71 77 Respiratory 13 14 20 Rate Blood Pressure 155/80 155/80 155/80 Blood Pressure [Right] O2 Sat by Pulse 100 100 100 Oximetry 07/24/21 07/24/21 07/24/21 16:15 16:31 16:45 Temperature Pulse Rate 73 68 85 Respiratory 24 17 20 Rate Blood Pressure 155/80 155/80 146/90 Blood Pressure [Right] O2 Sat by Pulse 100 100 78 L Oximetry 07/24/21 07/24/21 07/24/21 17:01 17:15 17:31 Temperature Pulse Rate 79 69 Respiratory 16 12 19 Rate Blood Pressure 145/88 145/88 145/88 Blood Pressure [Right] O2 Sat by Pulse 90 63 L 87 Oximetry 07/24/21 07/24/21 07/24/21 17:45 18:01 18:15 Temperature Pulse Rate Respiratory 12 Rate Blood Pressure 116/83 116/83 116/83 Blood Pressure [Right] O2 Sat by Pulse 55 L 100 99 Oximetry ED Medical Decision Making - Lab Data Result diagrams: 07/24/21 15:12 07/24/21 15:12 - Radiology Data Radiology results: report reviewed - Medical Decision Making Patient is 41 years old male with history of seizure and chronic alcoholism. Patient is noncompliant with his medication. Patient brought to the emergency room by his mother for evaluation of seizure. Patient mother stated that she found him confused and altered possibly post ictal. I evaluated him before patient was taking Dilantin but he is not compliant with his medication. Patient also admitted drinking alcohol every day. He also admitted that he had history of alcohol withdrawal seizure. Patient now is alert, oriented x3 in no acute distress. Patient denied any fever or chills. No cough, chest pain or shortness of breath. Patient denied any weakness numbness or tingling sensation. No bowel or bladder incontinence. Patient remained stable in the ER with a stable vital sign. No seizure activity observed. Labs reviewed and is unremarkable. Patient received Keppra 1 g IV and 2 mg of Ativan. Patient given prescription for Dilantin and advised to follow-up with his neurologist and to be compliant with his medication. Patient also advised to return to the ER if he develop any new symptoms. Critical care attestation.: If time is entered above; I have spent that time in minutes in the direct care of this critically ill patient, excluding procedure time. ED Disposition Clinical Impression: Seizure disorder, Post-ictal confusion, Alcohol abuse Disposition: 01 HOME / SELF CARE / HOMELESS Is pt being admited?: No Condition: Stable Instructions: Alcohol Use Disorder, Epilepsy, [id number] Prescriptions: Phenytoin [Dilantin] 100 mg PO Q8HR #90 capsule Referrals: AMARILYS ALEXIS MD [Referring] - 3-5 Days
--- NOTE | 2021-07-24 15:57 | Cat Scan Report ---
CT BRAIN: 07/24/2021 INDICATION / CLINICAL INFORMATION: Seizure. COMPARISON: 02/03/2018 FINDINGS: BRAIN/INTRACRANIAL STRUCTURES: Unenhanced CT images of the brain demonstrate no evidence of acute abn ormality. Ventricles and sulci are normal in size and shape. There is no evidence of acute ischemic injury, hemorrhage, or mass. There are no abnormal extra-axial fluid collections. EXTRACRANIAL STRUCTURES: Unremarkable. IMPRESSION: No acute abnormality. Negative unenhanced CT of the brain. Nose change when compared to 02/03/[address] scans at this location are performed using dose reduction to ALARA by means of automated expos ure control. Signer Name: Jamie Lo MD Signed: 07/24/2021 3:52 PM Workstation Name: [id number]
[2021-07-24 16:07] LABS: Basophils % (Auto) 0.4 % (0.0-1.8); Eosinophils % (Auto) 0.8 % (0.0-4.3); Hematocrit 42.7 % (35.5-45.6); Hemoglobin 14.9 gm/dl (11.8-15.2); Lymphocytes # (Auto) 2.1 K/mm3 (1.2-5.4); Lymphocytes % (Auto) 38.1 % (13.4-35.0); Mean Corpuscular HGB Conc 35 % (32-34); Mean Corpuscular Volume 97 fl (84-94); Monocytes # (Auto) 0.5 K/mm3 (0.0-0.8); Monocytes % (Auto) 9.5 % (0.0-7.3); Platelet Count 283 K/mm3 (140-440); Red Blood Count 4.41 M/mm3 (3.65-5.03); Red Cell Distribution Width 13.5 % (13.2-15.2)
[2021-07-24 16:48] LABS: Alanine Aminotransferase 24 units/L (7-56); Albumin 4.4 g/dL (3.9-5); BUN/Creatinine Ratio 5; Blood Urea Nitrogen 6 mg/dL (9-20); Hemolysis Index 88
[2021-07-24 19:28] VITALS: BP 123/90
== END 2021-07-24 19:31 | disposition home or self-care (01) ==
LOC: ED 14:47
DX: G40.909 Epilepsy, unspecified, not intractable, without status epilepticus (principal); F10.10 Alcohol abuse, uncomplicated; R41.0 Disorientation, unspecified; Z98.890 Other specified postprocedural states; Z79.899 Other long term (current) drug therapy
CPT/HCPCS: 36415; 70450; 80053; 82962; 85025; 96361; 96374; 96375; 99284; J1953; J2060; 80320; G0480

== ENCOUNTER 2022-03-19 16:54 | Emergency (ER) | payer SELFPAY ==
[2022-03-19] MEDS ORDERED: levETIRAcetam 1000 MG/NS 0.75% 1,000 MG/100 ML BAG IV ONE (17:08)
[2022-03-19] MEDS ORDERED: SODIUM CHLORIDE 0.9% 1000 ML 1,000 ML IV ONE (17:08)
[2022-03-19] MEDS ORDERED: PHENYTOIN 1,000 MG in SODIUM CHLORIDE 0.9% 250ML 250 ML IV ONE (17:09)
[2022-03-19 17:50] LABS: Basophils % (Auto) 0.2 % (0.0-1.8); Hematocrit 41.5 % (35.5-45.6); Lymphocytes # (Auto) 0.8 K/mm3 (1.2-5.4); Lymphocytes % (Auto) 11.2 % (13.4-35.0); Mean Corpuscular HGB Conc 34 % (32-34); Mean Corpuscular Volume 98 fl (84-94); Monocytes # (Auto) 0.4 K/mm3 (0.0-0.8); Monocytes % (Auto) 5.4 % (0.0-7.3); Platelet Count 225 K/mm3 (140-440); Red Blood Count 4.25 M/mm3 (3.65-5.03); Red Cell Distribution Width 12.3 % (13.2-15.2)
--- NOTE | 2022-03-19 18:03 | XRay Report ---
CHEST 1 VIEW 03/19/2022 5:33 PM INDICATION / CLINICAL INFORMATION: Dyspnea. COMPARISON: 02/03/2019 FINDINGS: SUPPORT DEVICES: None. HEART / MEDIASTINUM: No significant abnormality. LUNGS / PLEURA: No significant pulmonary or pleural abnormality. No pneumothorax. ADDITIONAL FINDINGS: No significant additional findings. IMPRESSION: 1. No acute findings. Signer Name: Benjie Mejia MD Signed: 03/19/2022 5:58 PM Workstation Name: [id number]
[2022-03-19 18:14] LABS: Alanine Aminotransferase 34 units/L (7-56); Albumin 4.5 g/dL (3.9-5); BUN/Creatinine Ratio 6; Blood Urea Nitrogen 10 mg/dL (9-20); Calcium 9.7 mg/dL (8.4-10.2); Hemolysis Index 10
[2022-03-19 18:18] LABS: Bilirubin,Direct < 0.2 mg/dL (0-0.2)
--- NOTE | 2022-03-19 19:48 | Emergency Department Report ---
ED General Adult HPI - General Chief complaint: Arrhythmia/Palpitations Stated complaint: CHEST PAIN (AFIB) Time Seen by Provider: 03/19/22 16:56 Source: patient, EMS Mode of arrival: Stretcher Limitations: No Limitations - History of Present Illness Initial comments: pt was picked up[ by EMS, started having seizure, history of the same, takes dilantin no drugs or alcohol, no head injury -: Sudden, minutes(s) - Related Data Previous Rx's Medication Instructions Recorded Last Taken Type Phenytoin [Dilantin] 200 mg PO Q12HR #60 capsule.er 08/05/18 Unknown Rx Phenytoin [Dilantin] 100 mg PO Q8HR #90 capsule 07/15/19 Unknown Rx Chlorhexidine Mouthwash [Peridex] 15 ml MM BID #1 bottle 04/23/21 Unknown Rx Phenytoin [Dilantin] 100 mg PO Q8HR #90 capsule 04/23/21 Unknown Rx Phenytoin [Dilantin] 100 mg PO Q8HR #90 capsule 07/24/21 Unknown Rx Allergies Allergy/AdvReac Type Severity Reaction Status Date / Time No Known Allergies Allergy Verified 04/23/21 10:40 ED Review of Systems ROS: Stated complaint: CHEST PAIN (AFIB) Other details as noted in HPI Constitutional: denies: chills, fever Eyes: denies: eye pain, eye discharge, vision change ENT: denies: ear pain, throat pain Respiratory: denies: cough, shortness of breath, wheezing Cardiovascular: denies: chest pain, palpitations Endocrine: no symptoms reported Gastrointestinal: denies: abdominal pain, nausea, diarrhea Genitourinary: denies: urgency, dysuria Musculoskeletal: denies: back pain, joint swelling, arthralgia Skin: denies: rash, lesions Neurological: denies: headache, weakness, paresthesias Psychiatric: denies: anxiety, depression Hematological/Lymphatic: denies: easy bleeding, easy bruising ED Past Medical Hx - Past Medical History Hx Congestive Heart Failure: No Hx Diabetes: No Hx Seizures: Yes Hx Asthma: No Hx COPD: No - Surgical History Additional Surgical History: ankle surgery - Social History Smoking Status: Former Smoker - Medications Home Medications: Home Medications Medication Instructions Recorded Confirmed Last Taken Type Phenytoin [Dilantin] 200 mg PO Q12HR #60 capsule.er 08/05/18 Unknown Rx Phenytoin [Dilantin] 100 mg PO Q8HR #90 capsule 07/15/19 Unknown Rx Chlorhexidine Mouthwash [Peridex] 15 ml MM BID #1 bottle 04/23/21 Unknown Rx Phenytoin [Dilantin] 100 mg PO Q8HR #90 capsule 04/23/21 Unknown Rx Phenytoin [Dilantin] 100 mg PO Q8HR #90 capsule 07/24/21 Unknown Rx ED Physical Exam - General Limitations: No Limitations General appearance: alert, in no apparent distress - Head Head exam: Present: atraumatic, normocephalic - Eye Eye exam: Present: normal appearance - ENT ENT exam: Present: mucous membranes moist - Neck Neck exam: Present: normal inspection - Respiratory Respiratory exam: Present: normal lung sounds bilaterally. Absent: respiratory distress - Cardiovascular Cardiovascular Exam: Present: normal rhythm, tachycardia. Absent: systolic murmur, diastolic murmur, rubs, gallop - GI/Abdominal GI/Abdominal exam: Present: soft, normal bowel sounds - Rectal Rectal exam: Present: deferred - Extremities Exam Extremities exam: Present: normal inspection - Back Exam Back exam: Present: normal inspection - Neurological Exam Neurological exam: Present: alert, oriented X3 - Psychiatric Psychiatric exam: Present: normal affect, normal mood - Skin Skin exam: Present: warm, dry, intact, normal color. Absent: rash ED Medical Decision Making - Lab Data Result diagrams: 03/19/22 17:34 03/19/22 17:34 - EKG Data -: EKG Interpreted by Nc EKG shows normal: sinus rhythm Rate: tachycardia - EKG Data Interpretation: no acute changes - Radiology Data Radiology results: report reviewed, image reviewed - Medical Decision Making work up negative dialntin loaded , vss , HR back to *0s awake and alert Critical care attestation.: If time is entered above; I have spent that time in minutes in the direct care of this critically ill patient, excluding procedure time. ED Disposition Clinical Impression: Seizure disorder, Palpitation Disposition: HOME / SELF CARE / HOMELESS Is pt being admited?: No Does the pt Need Aspirin: No Condition: Stable Instructions: Palpitations, [id number], Epilepsy, [id number]
[2022-03-19 21:22] VITALS: BP 148/80
--- NOTE | 2022-03-20 13:47 | Electrocardiograph Report ---
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
== END 2022-03-19 20:55 | disposition home or self-care (01) ==
LOC: ED 16:54
DX: G40.909 Epilepsy, unspecified, not intractable, without status epilepticus (principal); R00.2 Palpitations; Z87.891 Personal history of nicotine dependence
CPT/HCPCS: 36415; 71045; 80053; 80076; 82550; 84484; 85025; 93005; 96361; 96374; 99284; J1165; J1953; J7030; J7050; 80320; G0480

== ENCOUNTER 2022-04-27 12:08 | Emergency (ER) | payer SELFPAY ==
[2022-04-27] MEDS ORDERED: PHENYTOIN 1,000 MG in SODIUM CHLORIDE 0.9% 250ML 250 ML IV ONE ×2 (12:56→15:00)
[2022-04-27] MEDS ORDERED: SODIUM CHLORIDE 0.9% 1000 ML 1,000 ML IV ONE ×2 (12:56→14:45)
--- NOTE | 2022-04-27 13:01 | Emergency Department Report ---
ED Seizure HPI - General Chief Complaint: Seizure Stated Complaint: SEIZURE Time Seen by Provider: 04/27/22 12:56 Source: patient, EMS Mode of arrival: Stretcher Limitations: No Limitations - History of Present Illness Initial Comments: Patient is 42 years old male with history of seizure on Dilantin. Patient brought to the emergency room via EMS for evaluation of seizure. Patient had 1 episode of seizure today. Upon arrival to the ER patient slightly postictal however he is answering question well. He denies any fever or chills. Patient sustained a laceration to the upper lip. MD Complaint: seizure -: Sudden Description of Episode: loss of consciousness, tonic-clonic movement, bladder incontinence, post-event confusion Witnessed:: Yes Trauma: Yes Seizure History: known seizure disorder Associated Symptoms: denies other symptoms - Related Data Previous Rx's Medication Instructions Recorded Last Taken Type Phenytoin [Dilantin] 200 mg PO Q12HR #60 capsule.er 08/05/18 Unknown Rx Phenytoin [Dilantin] 100 mg PO Q8HR #90 capsule 07/15/19 Unknown Rx Chlorhexidine Mouthwash [Peridex] 15 ml MM BID #1 bottle 04/23/21 Unknown Rx Phenytoin [Dilantin] 100 mg PO Q8HR #90 capsule 04/23/21 Unknown Rx Phenytoin [Dilantin] 100 mg PO Q8HR #90 capsule 07/24/21 Unknown Rx Allergies Allergy/AdvReac Type Severity Reaction Status Date / Time No Known Allergies Allergy Verified 04/27/22 12:43 ED Review of Systems ROS: Stated complaint: SEIZURE Other details as noted in HPI Comment: All other systems reviewed and negative Constitutional: denies: chills, fever Respiratory: denies: cough, shortness of breath, SOB with exertion, SOB at rest Cardiovascular: denies: chest pain, palpitations Gastrointestinal: denies: abdominal pain, nausea, vomiting, diarrhea, constipation, hematemesis, melena Musculoskeletal: denies: back pain Neurological: denies: headache, weakness, numbness, paresthesias, confusion ED Past Medical Hx - Past Medical History Hx Congestive Heart Failure: No Hx Diabetes: No Hx Seizures: Yes Hx Asthma: No Hx COPD: No - Surgical History Additional Surgical History: ankle surgery - Social History Smoking Status: Former Smoker - Medications Home Medications: Home Medications Medication Instructions Recorded Confirmed Last Taken Type Phenytoin [Dilantin] 200 mg PO Q12HR #60 capsule.er 08/05/18 Unknown Rx Phenytoin [Dilantin] 100 mg PO Q8HR #90 capsule 07/15/19 Unknown Rx Chlorhexidine Mouthwash [Peridex] 15 ml MM BID #1 bottle 04/23/21 Unknown Rx Phenytoin [Dilantin] 100 mg PO Q8HR #90 capsule 04/23/21 Unknown Rx Phenytoin [Dilantin] 100 mg PO Q8HR #90 capsule 07/24/21 Unknown Rx ED Physical Exam - General Limitations: No Limitations (Is) General appearance: alert, in no apparent distress - Eye Pupils: Present: other (0.5 cm laceration to be upper lip.) - ENT ENT exam: Present: normal exam, normal orophraynx, mucous membranes moist - Neck Neck exam: Present: normal inspection, full ROM. Absent: tenderness, me ningismus - Respiratory Respiratory exam: Present: normal lung sounds bilaterally - Cardiovascular Cardiovascular Exam: Present: regular rate, normal rhythm, normal heart sounds - GI/Abdominal GI/Abdominal exam: Present: soft, normal bowel sounds. Absent: distended, tenderness, guarding, rebound, rigid, organomegaly, mass, bruit, pulsatile mass, hernia - Extremities Exam Extremities exam: Present: normal inspection, full ROM, normal capillary refill. Absent: tenderness - Back Exam Back exam: Present: normal inspection, full ROM. Absent: CVA tenderness (R), CVA tenderness (L) - Neurological Exam Neurological exam: Present: alert, oriented X3, CN II-XII intact - Psychiatric Psychiatric exam: Present: normal mood - Skin Skin exam: Present: other ED Course Vital Signs 04/27/22 12:41 Temperature 98.4 F Pulse Rate 91 H Respiratory 18 Rate Blood Pressure 170/70 [Left] O2 Sat by Pulse 100 Oximetry - Laceration /Wound Repair Face Wound Location: face Wound's Depth, Shape: irregular Wound Explored: clean Anesthesia: 1% Lidocaine Suture Size/Type: 5:0 ED Medical Decision Making - Lab Data Result diagrams: 04/27/22 13:06 04/27/22 13:06 - Radiology Data Radiology results: report reviewed - Medical Decision Making Patient is 42 years old male with history of seizure on Dilantin. Patient brought to the emergency room via EMS for evaluation of seizure. Patient had 1 episode of seizure today. Upon arrival to the ER patient slightly postictal however he is answering question well. He denies any fever or chills. Patient sustained a laceration to the upper lip. Patient received Dilantin 1 g IV. No seizure activity observed in the ER. Labs reviewed and is unremarkable. CT brain is negative for acute finding. Laceration of the lip repair. Patient advised to follow-up with his neurologist in the next 2 to 3 days and to return to the ER if he develop any new symptoms. Critical care attestation.: If time is entered above; I have spent that time in minutes in the direct care of this critically ill patient, excluding procedure time. ED Disposition Clinical Impression: Seizure, Laceration of lip Disposition: HOME / SELF CARE / HOMELESS Is pt being admited?: No Condition: Stable Instructions: Laceration Care, Adult, [id number], Seizure, Adult, Sutured Wound Care, [id number] Referrals: AMARILYS ALEXIS MD [Referring] - 3-5 Days
--- NOTE | 2022-04-27 14:23 | Cat Scan Report ---
CT head/brain wo con INDICATION: HEAD INJURY. TECHNIQUE: Routine CT head. All CT scans at this location are performed using CT dose reduction for A NEVIN by means of automated exposure control. COMPARISON: None. FINDINGS: Intracranial: Darby-white matter differentiation is maintained. No intracranial hemorrhage. No extra a xial collection. No hydrocephalus. No herniation. Sinuses: Paranasal sinuses and mastoid air cells are essentially clear. Orbits: Globes are intact. Calvarium: No acute fracture. IMPRESSION: 1. No acute intracranial abnormality. Signer Name: Aashish García MD Signed: 04/27/2022 2:19 PM Workstation Name: [id number]
[2022-04-27] MEDS ORDERED: LIDOCAINE (1%) 10 MG/1 ML VIAL 20 ML MDV INFILTRATI ONE ×2 (14:30→14:45)
[2022-04-27 14:32] LABS: Basophils % (Auto) 0.3 % (0.0-1.8); Eosinophils % (Auto) 0.1 % (0.0-4.3); Hematocrit 42.5 % (35.5-45.6); Hemoglobin 14.3 gm/dl (11.8-15.2); Lymphocytes # (Auto) 0.7 K/mm3 (1.2-5.4); Lymphocytes % (Auto) 9.1 % (13.4-35.0); Mean Corpuscular HGB Conc 34 % (32-34); Mean Corpuscular Volume 97 fl (84-94); Monocytes # (Auto) 0.5 K/mm3 (0.0-0.8); Monocytes % (Auto) 6.9 % (0.0-7.3); Platelet Count 408 K/mm3 (140-440); Red Blood Count 4.38 M/mm3 (3.65-5.03)
[2022-04-27 14:39] LABS: Alanine Aminotransferase 18 units/L (7-56); Albumin 4.4 g/dL (3.9-5); BUN/Creatinine Ratio 7; Blood Urea Nitrogen 10 mg/dL (9-20); Calcium 9.6 mg/dL (8.4-10.2); Hemolysis Index 6
[2022-04-27 14:42] LABS: Bilirubin,Direct < 0.2 mg/dL (0-0.2)
[2022-04-27 16:06] VITALS: BP 155/81
== END 2022-04-27 16:00 | disposition home or self-care (01) ==
LOC: ED 12:08
DX: S01.511A Laceration without foreign body of lip, initial encounter (principal); G40.909 Epilepsy, unspecified, not intractable, without status epilepticus; X58.XXXA Exposure to other specified factors, initial encounter; Y93.89 Activity, other specified; Y92.89 Other specified places as the place of occurrence of the external cause; Y99.8 Other external cause status
CPT/HCPCS: 12011; 36415; 70450; 80048; 80076; 85025; 96365; 99284; J1165; J7030; J7050

== ENCOUNTER 2022-06-25 22:18 | Emergency (ER) | payer SELFPAY ==
[2022-06-25] MEDS ORDERED: LORazepam 2 MG/ML VIAL ONE (22:53)
[2022-06-25] MEDS ORDERED: LORazepam 2 MG/ML VIAL IV ONE ×2 (23:36→23:52)
[2022-06-25] MEDS ORDERED: PHENYTOIN 1,000 MG in SODIUM CHLORIDE 0.9% 250ML 250 ML IV ONE (23:54)
[2022-06-26] MEDS ORDERED: THIAMINE 100 MG, FOLIC ACID 1 MG, MULTIPLE VITAMIN INJ, ADULT 10 ML in SODIUM CHLORIDE ... IV ONE (00:42)
--- NOTE | 2022-06-26 00:43 | XRay Report ---
XR chest 1V ap INDICATION / CLINICAL INFORMATION: Dyspnea. COMPARISON: 03/19/2022 FINDINGS: SUPPORT DEVICES: None. HEART /PULMONARY VASCULATURE: No significant abnormality. LUNGS / PLEURA: No significant pulmonary or pleural abnormality. No pneumothorax. ADDITIONAL FINDINGS: No significant additional findings. IMPRESSION: 1. No acute findings. Signer Name: Kwame Florian MD Signed: 06/26/2022 12:39 AM Workstation Name: [id number][id number]
[2022-06-26 01:17] LABS: Alanine Aminotransferase 16 units/L (7-56); BUN/Creatinine Ratio 8; Bilirubin,Direct 0.3 mg/dL (0-0.2); Blood Urea Nitrogen 9 mg/dL (9-20); Calcium 9.1 mg/dL (8.4-10.2); Hemolysis Index 19
[2022-06-26 01:48] LABS: Basophils % (Auto) 0.4 % (0.0-1.8); Eosinophils % (Auto) 0.9 % (0.0-4.3); Hematocrit 39.9 % (35.5-45.6); Hemoglobin 13.4 gm/dl (11.8-15.2); Lymphocytes # (Auto) 1.7 K/mm3 (1.2-5.4); Lymphocytes % (Auto) 35.7 % (13.4-35.0); Mean Corpuscular HGB Conc 34 % (32-34); Mean Corpuscular Volume 98 fl (84-94); Monocytes # (Auto) 0.6 K/mm3 (0.0-0.8); Platelet Count 261 K/mm3 (140-440); Red Blood Count 4.08 M/mm3 (3.65-5.03); Red Cell Distribution Width 13.2 % (13.2-15.2)
[2022-06-26 04:32] LABS: Bilirubin,Urine Negative (Negative); Color,Urine Yellow (Yellow)
[2022-06-26 04:33] LABS: Blood,Urine Negative (Negative); Urobilinogen,Urine 0.2 mg/dL (<2.0)
[2022-06-26 04:36] VITALS: BP 104/65
[2022-06-26 04:36] LABS: Mucus,Urine 1+ /HPF
[2022-06-26 04:38] LABS: Amphetamine Screen,Urine PRESUMPTIVE NEGATIVE; Benzodiazepines Screen,Urine PRESUMPTIVE NEGATIVE; Cannabinoid Screen,Urine PRESUMPTIVE NEGATIVE; Cocaine Screen,Urine PRESUMPTIVE NEGATIVE; Methadone Screen,Urine PRESUMPTIVE NEGATIVE; Opiate Screen,Urine PRESUMPTIVE NEGATIVE
--- NOTE | 2022-06-26 05:21 | Emergency Department Report ---
ED Seizure HPI - General Chief Complaint: Seizure Stated Complaint: SEIZURES Time Seen by Provider: 06/25/22 23:48 Source: EMS Mode of arrival: Stretcher Limitations: No Limitations - History of Present Illness Initial Comments: Had been drinking today and witnessed seizure by neighbor. Ativan 2 mg given IV upon arrival to ED for active seizure. MD Complaint: possible seizure -: hour(s) Description of Episode: tonic-clonic movement Witnessed:: Yes Trauma: No Seizure History: known seizure disorder, history of withdrawal se Place: home Possible Precipitating Event: none Associated Symptoms: denies: denies other symptoms, chest pain, cough Treatments Prior to Arrival: benzodiazepines - Related Data Previous Rx's Medication Instructions Recorded Last Taken Type Phenytoin [Dilantin] 200 mg PO Q12HR #60 capsule.er 08/05/18 Unknown Rx Phenytoin [Dilantin] 100 mg PO Q8HR #90 capsule 07/15/19 Unknown Rx Chlorhexidine Mouthwash [Peridex] 15 ml MM BID #1 bottle 04/23/21 Unknown Rx Phenytoin [Dilantin] 100 mg PO Q8HR #90 capsule 04/23/21 Unknown Rx Phenytoin [Dilantin] 100 mg PO Q8HR #90 capsule 07/24/21 Unknown Rx Phenytoin [Dilantin] 100 mg PO Q8HR #90 capsule 04/27/22 Unknown Rx Phenytoin [Dilantin] 100 mg PO Q8HR #20 capsule 06/26/22 Unknown Rx Allergies Allergy/AdvReac Type Severity Reaction Status Date / Time No Known Allergies Allergy Verified 04/27/22 12:43 ED Review of Systems ROS: Stated complaint: SEIZURES Other details as noted in HPI Constitutional: denies: chills, fever Eyes: denies: eye pain, eye discharge, vision change ENT: denies: ear pain, throat pain Respiratory: denies: cough, shortness of breath, wheezing Cardiovascular: denies: chest pain, palpitations Endocrine: no symptoms reported Gastrointestinal: denies: abdominal pain, nausea, diarrhea Genitourinary: denies: urgency, dysuria Musculoskeletal: denies: back pain, joint swelling, arthralgia Skin: denies: rash, lesions Neurological: denies: headache, weakness, paresthesias Psychiatric: denies: anxiety, depression Hematological/Lymphatic: denies: easy bleeding, easy bruising ED Past Medical Hx - Past Medical History Previous Medical History?: Yes Hx Congestive Heart Failure: No Hx Diabetes: No Hx Seizures: Yes Hx Asthma: No Hx COPD: No - Surgical History Past Surgical History?: Yes Additional Surgical History: ankle surgery - Social History Smoking Status: Current Every Day Smoker Substance Use Type: Alcohol - Medications Home Medications: Home Medications Medication Instructions Recorded Confirmed Last Taken Type Phenytoin [Dilantin] 200 mg PO Q12HR #60 capsule.er 08/05/18 Unknown Rx Phenytoin [Dilantin] 100 mg PO Q8HR #90 capsule 07/15/19 Unknown Rx Chlorhexidine Mouthwash [Peridex] 15 ml MM BID #1 bottle 04/23/21 Unknown Rx Phenytoin [Dilantin] 100 mg PO Q8HR #90 capsule 04/23/21 Unknown Rx Phenytoin [Dilantin] 100 mg PO Q8HR #90 capsule 07/24/21 Unknown Rx Phenytoin [Dilantin] 100 mg PO Q8HR #90 capsule 04/27/22 Unknown Rx Phenytoin [Dilantin] 100 mg PO Q8HR #20 capsule 06/26/22 Unknown Rx ED Physical Exam - General Limitations: No Limitations General appearance: appears intoxicated - Head Head exam: Present: atraumatic, normocephalic - Eye Eye exam: Present: normal appearance - ENT ENT exam: Present: mucous membranes moist - Neck Neck exam: Present: normal inspection - Respiratory Respiratory exam: Present: normal lung sounds bilaterally. Absent: respiratory distress - Cardiovascular Cardiovascular Exam: Present: regular rate, normal rhythm. Absent: systolic murmur, diastolic murmur, rubs, gallop - GI/Abdominal GI/Abdominal exam: Present: soft, normal bowel sounds - Rectal Rectal exam: Present: deferred - Extremities Exam Extremities exam: Present: normal inspection - Back Exam Back exam: Present: normal inspection - Neurological Exam Neurological exam: Present: alert, oriented X3 - Psychiatric Psychiatric exam: Present: normal affect, normal mood - Skin Skin exam: Present: warm, dry, intact, normal color. Absent: rash ED Course Vital Signs 06/25/22 06/25/22 06/25/22 22:19 23:38 23:45 Temperature 98 F Pulse Rate 65 81 80 Respiratory 18 14 18 Rate Blood Pressure 140/70 128/85 O2 Sat by Pulse 98 98 97 Oximetry 06/26/22 06/26/22 06/26/22 00:01 00:15 00:24 Temperature 98.2 F Pulse Rate 65 74 Respiratory 16 17 16 Rate Blood Pressure 124/76 124/76 O2 Sat by Pulse 99 97 97 Oximetry 06/26/22 06/26/22 06/26/22 00:31 00:45 01:01 Temperature Pulse Rate 76 86 65 Respiratory 17 16 21 Rate Blood Pressure 124/76 105/64 105/64 O2 Sat by Pulse 96 96 98 Oximetry 06/26/22 06/26/22 06/26/22 01:15 01:31 01:45 Temperature Pulse Rate 73 57 L 64 Respiratory 21 15 16 Rate Blood Pressure 105/64 105/64 108/52 O2 Sat by Pulse 97 98 Oximetry 06/26/22 06/26/22 06/26/22 02:01 02:15 02:31 Temperature Pulse Rate 65 60 65 Respiratory 18 16 18 Rate Blood Pressure 108/52 108/52 108/52 O2 Sat by Pulse 98 95 96 Oximetry 06/26/22 06/26/22 06/26/22 02:45 03:01 03:15 Temperature Pulse Rate 64 56 L 73 Respiratory 18 16 22 Rate Blood Pressure 106/54 106/54 106/54 O2 Sat by Pulse 97 98 96 Oximetry 06/26/22 06/26/22 06/26/22 03:31 03:45 04:01 Temperature Pulse Rate 58 L 67 63 Respiratory 20 15 16 Rate Blood Pressure 106/54 104/65 104/65 O2 Sat by Pulse 96 99 97 Oximetry 06/26/22 06/26/22 04:15 04:31 Temperature Pulse Rate 73 61 Respiratory 14 17 Rate Blood Pressure 104/65 104/65 O2 Sat by Pulse 98 98 Oximetry ED Medical Decision Making - Lab Data Result diagrams: 06/26/22 00:17 06/26/22 00:17 Critical care attestation.: If time is entered above; I have spent that time in minutes in the direct care of this critically ill patient, excluding procedure time. ED Disposition Clinical Impression: Seizure disorder, Alcohol abuse Disposition: 01 HOME / SELF CARE / HOMELESS Is pt being admited?: No Does the pt Need Aspirin: No Condition: Stable Instructions: Alcohol Use Disorder, Epilepsy, [id number] Referrals: ENEIDA KAY MD [Primary Care Provider] - 3-5 Days
--- NOTE | 2022-06-26 10:22 | Electrocardiograph Report ---
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
== END 2022-06-26 04:45 | disposition home or self-care (01) ==
LOC: ED 22:18
DX: G40.909 Epilepsy, unspecified, not intractable, without status epilepticus (principal); F10.10 Alcohol abuse, uncomplicated; F17.200 Nicotine dependence, unspecified, uncomplicated; Y90.9 Presence of alcohol in blood, level not specified
CPT/HCPCS: 36415; 71045; 80053; 80076; 80185; 80307; 81001; 85025; 93005; 96365; 96366; 96368; 96375; 96376; 99284; J1165; J2060; J3411; J3490; J7030; J7050; 80320; G0480